=== PATIENT | female | born 1985 | race Caucasian/White ===

== ENCOUNTER 2017-12-19 20:56 | Inpatient (IN) | payer OTHER ==
[~2017-12-19] VITALS: Ht 162.6 cm; Wt 112.5 kg
[~2017-12-19 20:56] MED LIST: ABILIFY5 M1 PO; DEPAKOTE500 M1 PO; EFFEXOR XR75 M1 PO; KLONOPIN1 M1 PO; NEURONTIN300 M1 PO; ZYPREXA10 M1 PO
[2017-12-19 22:03] LABS: ABSOLUTE BASOPHIL COUNT 0 /CUMM (0.0-0.2); ABSOLUTE EOSINOPHIL COUNT 0 /CUMM (0.0-0.7); ABSOLUTE GRANULOCYTE CT 3.6 /CUMM (1.4-6.5); ABSOLUTE LYMPH COUNT 2.1 /CUMM (1.2-3.4); ABSOLUTE MONOCYTE COUNT 0.5 /CUMM (0.10-0.60); BASOPHIL % 0.2 % (0.0-2.0); EOSINOPHIL % 0 % (0-5); GRANULOCYTE % 58.1 % (42.2-75.2); HEMATOCRIT 39.1 % (37-47); MEAN CORPUSCULAR HGB 30.6 PG (27.0-31.0); MEAN CORPUSCULAR HGB CONC 33.5 G/DL (33.0-37.0); MEAN CORPUSCULAR VOLUME 91.4 FL (81.0-99.0); MEAN PLATELET VOLUME 10.9 FL (7.4-10.4); PLATELET COUNT 145 /CUMM (130-400); RBC DISTRIBUTION WIDTH 13.6 % (11.5-14.5); RED BLOOD CELL CT 4.28 /CUMM (4.20-5.40); WHITE BLOOD CELL COUNT 6.2 /CUMM (4.8-10.8)
[2017-12-19] MEDS ORDERED: ALPRAZOLAM1 M2 PO (22:05)
[2017-12-19] MEDS ORDERED: DEPAKOTE500 M1 PO (22:08)
[2017-12-19] MEDS ORDERED: GABAPENTIN400 M2 PO (22:09)
[2017-12-19] MEDS ORDERED: PROPRANOLOL HCL20 M1 PO (22:09)
[2017-12-19] MEDS ORDERED: LATUDA80 M1 PO (22:09)
[2017-12-19] MEDS ORDERED: MIRTAZAPINE15 M2 PO (22:10)
[2017-12-19] MEDS ORDERED: MINIPRESS2 M1 PO (22:10)
--- NOTE | 2017-12-20 00:40 | ED GENERAL ADULT ---
History of Present Illness General Chief Complaint: Psychiatric Related Complaint Stated Complaint: BIBA +SI Source: patient Exam Limitations: no limitations Vital Signs & Intake/Output Vital Signs & Intake/Output Vital Signs Date Time Temp Pulse Resp B/P B/P Pulse O2 O2 Flow FiO2 Mean Ox Delivery Rate 12/20 1601 97.2 67 95/60 12/20 1555 97.2 67 18 95/60 12/20 1409 65 109/73 12/20 1357 97.7 65 19 109/73 98 Room Air 12/20 1031 97 Room Air Room Air 12/20 1031 97.4 83 18 128/81 97 Room Air Room Air 12/20 0818 97.3 56 18 133/74 100 Room Air Room Air 12/20 0615 97.9 56 20 117/22 12/20 0557 Room Air 12/20 0557 97.9 56 20 117/22 98 Room Air 12/20 0144 Room Air 12/20 0143 98.8 64 20 123/72 100 Room Air 12/19 2309 99.3 80 20 127/96 99 Room Air 12/19 2109 98.3 89 20 136/88 99 Room Air Allergies Coded Allergies: No Known Allergies (02/25/16) Reconcile Medications Alprazolam 1 MG TABLET 1 TAB PO TID ANXIETY (Reported) Divalproex Sodium (Depakote) 500 MG TABLET.DR 1 TAB PO QAM MENTAL HEALTH ( Reported) Divalproex Sodium (Depakote) 500 MG TABLET.DR 1,500 MG PO QPM MENTAL HEALTH ( Reported) Gabapentin 400 MG CAPSULE 1 CAP PO TID ANXIETY/MOOD (Reported) Lurasidone HCl (Latuda) 80 MG TABLET 1 TAB PO QPM MENTAL HEALTH (Reported) Mirtazapine 15 MG TABLET 1 TAB PO QPM MENTAL HEALTH (Reported) Prazosin HCl (Minipress) 2 MG CAPSULE 1 CAP PO QPM NIGHTMARES (Reported) Propranolol HCl 20 MG TABLET 1 TAB PO TID ANXIETY (Reported) Venlafaxine HCl (Effexor XR) 75 MG CAP.ER.24H 5 CAP PO DAILY MENTAL HEALTH ( Reported) Triage Note: PT BIBA WITH +SI. EMS REPORTS THAT PT WAS SEEN AND DC'd FROM [facility] ED EARLIER TODAY WITH SAME COMPLAINT. +SI WITH PLAN TO OD ON ASPIRIN, ILLEGAL DRUGS AND/OR ALCOHOL. PT STATES THAT SHE WAS DC'd WITHOUT TX TODAY FROM [facility], BEING TOLD TO "STAY WITH A FRIEND AND TAKE A HOT SHOWER". PT ARRIVES TEARFUL AND AGITATED, WANTING TO KNOW "THAT YOU'RE GOING TO DO SOMETHING FOR ME AND NOT IGNORE ME LIKE [facility]". PT GIVEN REASSURANCE THAT DUE TO HER SUICIDAL STATEMENTS SHE WOULD BE STAYING HERE AND SEEN". Triage Nurses Notes Reviewed? yes Onset: Gradual Duration: day(s): Timing: constant : No Patient currently breastfeeds: No HPI: 32-year-old female with a history of anxiety, depression, and polysubstance abuse presenting with suicidal ideation. Patient reports she has been having suicidal thoughts for the past few days. States that she usually begins to have these thoughts when she stops taking her Xanax, has been off her Xanax for 3 weeks. Is usually supposed to take 1 mg 3 times a day. Also states that she has had multiple life stressors that are worsening her suicidal ideation. Her child's father was recently incarcerated, leaving her as a single parent for the time being, increasing her stress levels. She denies homicidal ideation. States that she has a remote use of cocaine with last use last week. Denies any other drug use or EtOH use. Denies any pain or trauma. Patient was seen and evaluated at [facility] emergency department this morning. States that they discharged her home even though she was still having suicidal ideation. Presents now for psychiatric evaluation of her suicidal ideation. (Ne Maher) Past History Travel History Traveled to [place] past 21 day No Medical History Any Pertinent Medical History? see below for history Neurological: NONE EENT: NONE Cardiovascular: NONE Respiratory: NONE Gastrointestinal: NONE Hepatic: NONE Renal: NONE Musculoskeletal: NONE Psychiatric: anxiety, depression Endocrine: NONE Isolation History: Standard Surgical History Surgical History: non-contributory Psychosocial History What is your primary language Surinamese Tobacco Use: Refused to answer Family History Hx Contributory? No (Ne Maher) Review of Systems Review of Systems Constitutional: Reports: no symptoms. EENTM: Reports: no symptoms. Respiratory: Reports: no symptoms. Cardiovascular: Reports: no symptoms. GI: Reports: no symptoms. Genitourinary: Reports: no symptoms. Musculoskeletal: Reports: no symptoms. Skin: Reports: no symptoms. Neurological/Psychological: Reports: see HPI. Hematologic/Endocrine: Reports: no symptoms. Immunologic/Allergic: Reports: no symptoms. All Other Systems: Reviewed and Negative (Ne Maher) Physical Exam Physical Exam General Appearance: well developed/nourished, no apparent distress, alert, awake Comments: Gen.: Well-nourished, well-developed, no acute distress, tearful and agitated Head: Normocephalic, atraumatic. Eyes: Normal inspection bilaterally Ears: Normal inspection bilaterally Nose: Normal inspection Neck: Normal inspection Lungs: clear to auscultation bilaterally, normnal breath sounds Heart: regular rate and rhythm Abdomen: soft and non-tender Extremities: Normal inspection Neurologic: alert and oriented x3, steady gait Skin: warm and dry Psychiatric: no apparent delusions or hallucinations, behavior appropriate Core Measures ACS in differential dx? No CVA/TIA Diagnosis: No Sepsis Present: No Sepsis Focused Exam Completed? No (Ne Maher) Progress Differential Diagnoses I considered the following diagnoses in my evaluation of the patient: [Suicidal ideation versus intoxication, low concern for trauma] Plan of Care: Orders Procedure Date/time Status Regular Diet 12/20 D Active Regular Diet 12/20 B Complete URINE DRUGS OF ABUSE 12/20 1800 Active Vital Signs 12/20 1618 Active Inpt Psych Teach/Educate 12/20 1618 Active Nutritional Intake, Monitor 12/20 1618 Active Inpt Psych Auricular Acupunctu 12/20 1618 Active Admit to inpatient psych 12/20 1442 Active Patient Data - inpatient psych 12/20 1415 Active Admit to inpatient psych 12/20 1415 Active EKG 12/20 0106 Active Vital Signs 12/20 UNK Complete Nursing Misc 12/20 UNK Active Alternative Nursing Therapy 12/20 UNK Active Activity/Ambulation 12/20 UNK Active Intake & Output 12/199 Complete Continuous Observation Monitor 12/19 2113 Complete URINE DRUGS OF ABUSE 12/19 2113 Complete URINE 12/19 2113 Complete MAGNESIUM 12/19 2113 Complete ETHANOL 12/19 2113 Complete COMPREHENSIVE METABOLIC PANEL 12/19 2113 Complete CBC WITHOUT DIFFERENTIAL 12/19 2113 Complete ED CRISIS PSYCH CONSULT 12/19 2113 Active Current Medications Sig/Viviane Start time Last Medication Dose Stop Time Status Admin Methadone HCl 110 MG DAILY 12/21 09 AC (Dolophine) Venlafaxine HCl 375 MG DAILY 12/21 09 CAN (Effexor Xr) Venlafaxine HCl 300 MG 0800 12/21 0800 AC (Effexor Xr) Gabapentin 900 MG Q8 12/20 2200 AC (Neurontin) Divalproex Sodium 1,750 MG QPM 12/20 2100 AC (Depakote) Mirtazapine 15 MG AT BEDTIME 12/20 2099 CAN (Remeron) Prazosin HCl 2 MG QPM 12/20 2100 AC (Minipress 2 Mg.) Prazosin HCl 2 MG QPM 12/20 2099 CAN (Minipress 2 Mg.) Acetaminophen 650 MG Q4P PRN 12/20 1730 AC (Tylenol) Al Hydroxide/Mg 30 ML Q4-6 PRN PRN 12/20 173 AC Hydroxide (Maalox Plus) Chlorpromazine 100 MG AT BEDTIME NEED.. 12/20 173 AC (Thorazine 100MG) Magnesium Hydroxide 30 ML AT BEDTIME PRN 12/20 1730 AC (Milk Of Magnesia) Benztropine Mesylate 1 MG Q6P PRN 12/20 171 AC (Cogentin) Chlorpromazine 75 MG Q4 HRS NEEDED PRN 12/20 171 AC 12/20 (Thorazine 25MG Tab) 1857 Haloperidol 5 MG Q6P PRN 12/20 171 AC (Haldol) Lorazepam 2 MG Q6P PRN 12/20 171 AC (Ativan) Nicotine 2 MG Q2 HRS NEEDED PRN 12/20 171 AC (Nicotine) Nicotine 21 MG DAILY 12/20 171 AC (Nicoderm) Divalproex Sodium 500 MG QAM 12/20 0900 AC 12/20 (Depakote) 0925 Laboratory Tests 12/19/17 2140: Anion Gap 9, Estimated GFR > 60, BUN/Creatinine Ratio 18.8, Glucose 84, Calcium 9.4, Magnesium 1.9, Total Bilirubin 0.4, AST 39 H, ALT 37, Alkaline Phosphatase 101, Total Protein 7.1, Albumin 4.1, Globulin 3.0, Albumin/Globulin Ratio 1.4, CBC w Diff NO MAN DIFF REQ, RBC 4.28, MCV 91.4, MCH 30.6, MCHC 33.5, RDW 13.6, MPV 10.9 H, Gran % 58.1, Lymphocytes % 33.9, Monocytes % 7.8, Eosinophils % 0, Basophils % 0.2, Absolute Granulocytes 3.6, Absolute Lymphocytes 2.1, Absolute Monocytes 0.5, Absolute Eosinophils 0, Absolute Basophils 0, Serum Alcohol < 10.0 12/19/172138: Urine Opiates Screen 550, Methadone Screen > 735 H, Barbiturate Screen < 60, Ur Phencyclidine Scrn 10.70, Amphetamines Screen < 100, U Benzodiazepines Scrn < 85 , Urine Cocaine Screen > 1000 H, Urine Cannabis Screen < 5.00, Urine Test NEGATIVE Urine positive for methadone and cocaine. Otherwise labs unremarkable. Patient states that she receives 115 mg of methadone daily from [facility] in [place]. I contacted [facility] who stated she has not received her methadone dose from them in 6 days. There was a note in their system that stated she was receiving it at [facility]. Attempted to contact [facility] to inquire about her daily dosing and the last time she received her methadone, but was unable to get through to a provider. Her methadone dose will need to be confirmed in the morning. Patient will be signed out to Dr. Mc with crisis evaluation pending in the morning. Initial ED EKG: none (Ne Maher) Hand-Off Endorsed To: Abiodun Allen DO Endorsed Time: 1313 Pending: consult (Christina KIM,Luther Niño) Departure Departure Disposition: STILL A PATIENT Condition: Stable Clinical Impression Primary Impression: Suicidal ideation Secondary Impressions: Cocaine abuse, Opiate dependence Referrals: Patient Has No Primary Care Dr (PCP/Family) Departure Forms: Customer Survey General Discharge Information (Ne Maher) Departure Comments pt to be signed out to dr. salazar 12/20/17, 7am. PA/ACCOUNT AUDITOR Co-Sign Statement Statement: ED Attending supervision documentation- [] I saw and evaluated the patient. I have also reviewed all the pertinent lab results and diagnostic results. I agree with the findings and the plan of care as documented in the PA's/ACCOUNT AUDITOR's documentation. [x] I have reviewed the ED Record and agree with the PA's/ACCOUNT AUDITOR's documentation. [] Additions or exceptions (if any) to the PAs/ACCOUNT AUDITOR's note and plan are summarized below: [] (Jesusita KIM,Song Garcia) Departure Comments The patient was admitted to Inpatient Psychiatry. (Abiodun Allen DO) Critical Care Note Critical Care Note Critical Care Time: non-applicable (Vannesa AJ,Ne)
--- NOTE | 2017-12-20 11:01 | ED PSYCH CRISIS CONSULTATION ---
Crisis Consult Basic Assessment Date of Consult: 12/20/17 Responsible Person/Accompanied By: self Insurance Authorization: Insurance #1: Insurance name: JUAREZ LEON Phone number: Policy number: [id number] Group number: Authorization number: ED Provider: Patient's ED Provider: Ne Maher Primary Care Physician: Patient's PCP: Patient Has No Primary Care Dr PCP's Phone Number: Current Psychiatrist: Melba JOLLEY Chief Complaint: Psychiatric Related Complaint Patient's Quote: "I need my medication" Present Illness: Pt is a 32 year old female presenting to the ED with +SI. Pt reported to triage that she was seen by [facility] yesterday for SI and was discharged. Today patient states she is suicidal. She has a vague plan "maybe" overdosing on Aspirin or ETOH but states to from ETOH poisioning would take too long. Pt reports last suicide attempt was 1.5 months ago when she was going to run around a corner and jump off a bridge but her son's father stopped her. Pt is not able to articulate any neurovegetive symptoms and changes the subject when asked directly about her symptoms. She reports she is prescribed Methadone, Effexor, Xanax, Depakote, Latuda, Propanolol, Topomax, Remeron, and Prosozin. She reports she is prescribed her psychiatric medications from Melba Gould @ the [facility]. Pt reports she has been in treatment at the [facility] for over a year. She states she previously completed their IOP but has since relapsed. Pt relapsed ~3-4 weeks ago on cocaine when she started hanging out with her son's father again. Of note, son is 7 and lives with pt's sister who is the child's legal guardian. She states her last use was $40 worth of cocaine on Saturday however her UDS is positive for Cocaine and Methadone. Pt adamantly denies cocaine use and demanding a repeat drug screen. Pt reports she is on Methadone 115 mg from [place]. Dose verified by ED staff overnight, stating she was last dosed 115mg before her inpatient hospitalization at [place], which was this week. Patient had multiple IP psych hospitalization over the last few years including: [facility] (11/2016) [facility] (11/2016), [facility] (12/2015), [facility], and [facility]. Pt initially stated that her last IP at [facility] was over a year ago. When confronted about this statement stating that crisis knew she was IP this week at [facility], pt confirms admission. Pt states she was not being treated fairly at [place] and that to take her off her effexor. Pt states she signed a 3 day paper even though she was still suicidal because she was upset with the doctor about medication changes. Pt states when the tech was taking her BP she asked if she could rescind the 3 day. Pt reports she was discharged anyway. Pt reports since she was still feeling suicidal, she went to [facility], seen and discharged. Crisis obtained discharge paperwork from most recent discharge from [place]. It was documented that "upon arrival to the floor, her outpatient medications were resumed: depakote for mood stabilization, latude for mood adjunct treatment , gabapentin as a mood adjuct and for off label treatment of anxiety, effexor for depression and anxiety, remeron for sleep and prazosin for PTSD related nightmares. Various recommendations were made including the plan that her regimen should be minimized and several agents should be tapered/discontinued. She was resistant to this with the exception of discontinuing her remeron. She persistently demanded that she be given xanax, identifying this would be the only therapeutic intervention to resolve her anxiety and depression. When the team reviewed their concerns about this and explained that the use of xanax was not indicated, she filed a three day paper and requested to be discharged. Given her resistance to all recommendations made by the treatment team, it was felt that she had attained the maximal benefit of hospitalization. While she was felt to be a chronic risk of self harm given her pesistant substance abuse and personality traits, she was no longer felt to be imminently at risk of harm to self or others. When efforts were made then to develop a discharge plan, she threatened suicide. However, she displayed no objective evidence of worsening depression [she was out in the community, interacting with peers appropriately, making future oriented statements and was eating all three meals]. Upon exiting the hospital, she remarkered that she would be seeking care elsewhere to follow up with someone who will actually give me my xanax Crisis spoke to [facility] [phone]. They confirmed that the patient is in active treatment at the [facility]. She sees a therapist, Memo and ALEJANDRO Gould. Her next appointments are 12/23/17 and 12/25/17 respectively. Crisis consulted with Dr. Helen Garcia, practice professional psychiatrist. The initial plan was to discharge the pt as she has her after care appointments in place from her discharge from [facility] and [facility]'s discharge summary indicates she had recieved maximum benefit from that hospitalization. When crisis informed the patient that she would be discharged to follow up with [facility], pt loudly exclaimed, But Im suicidal Im going to tell my mom that no hospital is helping me so she knows who to blame when Im . Crisis allowed the patient some time to deescalate. Sitters noted that pt seemed to be falling asleep while standing up and needed to redirect her to sit on her bed several times. Crisis spoke to patients mother, Ana Maria Morales, . Mother reports she is concerned about her daughter stated that she cant survive on her own out there. Mom states the patient is homeless, despite the pt stating she was staying in her sons fathers apartment ([place]). Mom states she thinks if the pt is released from the hospital, she is a danger to herself or will be a victim. Mom states that the patient could get attacked by a perpetrator. Mom states living with her is not an option as her landlord will not allow it and the pt has been aggressive towards her in the past. Of note, per public records, pt is currently on probation and is expected to finish her probation in February 2018. Pt has been arrested 9 times since 2008. Charges include: Breach of Peace, Possession of Narcotics, resisting arrest, larceny, assault, criminal tresspassing, and failure to appear. She has violated probation on 2 occassions. Pt's title officer is Kevin Franklin ). Voicemail left, no return call at this time. Crisis consulted again with Dr. Garcia. We have decided to admit the patient to [facility]. This will likely be a short inpatient stay so that the patient can return to her outpatient treatment providers and restart IOP. Crisis explained to the patient that we will admit her and that she will have her Methadone tapered 5 mg per day per [facility] protocol for treating patients with Methadone when they have a positive UDS in the ED. Pt is upset about this and is adamant that her urine should not have cocaine in it. Patient ultimately signed in voluntarily as she states she needs to be hospitalized. Patient's Address: [address] [place] [address] Other Phone Number: Who Do You Live With? Patient/Self Family/Informants Interviewed: Spoke with [facility] [phone] to confirm the patients appointments- which are 12/23 (therapist) and 12/25 ([facility]). Spoke with [facility]. Pt was hospitalized - this week. They faxed over discharge summray., Left message with mother, Ana Maria Morales [phone] Allergies - Coded Allergies: No Known Allergies (02/25/16) Current Medications - Scheduled Medications Alprazolam 1 MG TABLET 1 TAB PO TID ANXIETY (Reported) Entered as Reported by Марина Barrow on 12/19/172204 Divalproex Sodium (Depakote) 500 MG TABLET. 1 TAB PO QAM MENTAL HEALTH ( Reported) Entered as Reported by Tyler Luther on 02/25/16 111 Divalproex Sodium (Depakote) 500 MG TABLET. 1,500 MG PO QPM MENTAL HEALTH ( Reported) Entered as Reported by Марина Barrow on 12/19/172207 Gabapentin 400 MG CAPSULE 1 CAP PO TID ANXIETY/MOOD (Reported) Entered as Reported by Марина Barrow on 12/19/172208 Lurasidone HCl (Latuda) 80 MG TABLET 1 TAB PO QPM MENTAL HEALTH (Reported) Entered as Reported by Марина Barrow on 12/19/172208 Mirtazapine 15 MG TABLET 1 TAB PO QPM MENTAL HEALTH (Reported) Entered as Reported by Марина Barrow on 12/19/172209 Prazosin HCl (Minipress) 2 MG CAPSULE 1 CAP PO QPM NIGHTMARES (Reported) Entered as Reported by Марина Barrow on 12/19/172209 Propranolol HCl 20 MG TABLET 1 TAB PO TID ANXIETY (Reported) Entered as Reported by Марина Barorw on 12/19/172208 Venlafaxine HCl (Effexor XR) 75 MG CAP.ER.24H 5 CAP PO DAILY MENTAL HEALTH ( Reported) Entered as Reported by Tyler Luther on 02/25/16 1117 Laboratory Results: Laboratory Tests 12/19/172139: Anion Gap 9, Estimated GFR > 60, BUN/Creatinine Ratio 18.8, Glucose 84, Calcium 9.4, Magnesium 1.9, Total Bilirubin 0.4, AST 39 H, ALT 37, Alkaline Phosphatase 101, Total Protein 7.1, Albumin 4.1, Globulin 3.0, Albumin/Globulin Ratio 1.4, CBC w Diff NO MAN DIFF REQ, RBC 4.28, MCV 91.4, MCH 30.6, MCHC 33.5, RDW 13.6, MPV 10.9 H, Gran % 58.1, Lymphocytes % 33.9, Monocytes % 7.8, Eosinophils % 0, Basophils % 0.2, Absolute Granulocytes 3.6, Absolute Lymphocytes 2.1, Absolute Monocytes 0.5, Absolute Eosinophils 0, Absolute Basophils 0, Serum Alcohol < 10.0 12/19/172138: Urine Opiates Screen 550, Methadone Screen > 735 H, Barbiturate Screen < 60, Ur Phencyclidine Scrn 10.70, Amphetamines Screen < 100, U Benzodiazepines Scrn < 85 , Urine Cocaine Screen > 1000 H, Urine Cannabis Screen < 5.00, Urine Test NEGATIVE Past History Past Medical History Neurological: NONE EENT: NONE Cardiovascular: NONE Respiratory: NONE Gastrointestinal: NONE Hepatic: NONE Renal: NONE Musculoskeletal: NONE Psychiatric: anxiety, depression, substance abuse Endocrine: NONE Past Surgical History Surgical History: non-contributory Psychosocial History Strengths/Capabilities: Pt is service connected to [facility] Physical Limitations (Interventions): none obeserved Psychiatric Treatment History Psych Treatment Psychiatric Treatment Yes Inpatient Treatment Yes Outpatient Treatment Yes Location of Treatment Most recent IP- Bpt: this week, other IP (6), OP: [facility] Reason for Treatment SI, bipolar d/o, polysubstance use Dates of Treatment see above Response to Treatment poor Diagnosis by History: Bipolar Disorder Opiate Use Disorder Stimulant Use Disorder, Cocaine Type REYNALDO Substance Use/Abuse History Drug Use/Abuse 1 Substances Used/Abused Yes Substance Used/Abused Cocaine First Use unk Last Used pt reports 12/15; however pt is + for cocaine on 12/20 How much used/taken $40 worth How often intermittantly For how long 3-4 weeks Route of use smoke Drug Use/Abuse 2 Substances Used/Abused Yes Substance Used/Abused Benzodiazepines First Use Xanax 03/2017, prior to that Klonopin for almost 2 years Last Used 3 weeks ago How much used/taken pt states 1mg TID How often daily For how long since 03/2017 Route of use oral Drug Use/Abuse 3 Substances Used/Abused Yes Substance Used/Abused Non-Prescribed Opiates First Use 2005 Last Used pt reports no recent use, UDS from Bpt + opiates 12/16/17 Drug Use/Abuse 4 Substances Used/Abused Yes Substance Used/Abused Other (list in comments) (Methadone) Last Used today in ED How much used/taken 115 mg How often daily For how long unk Route of use oral Substance Abuse Treatment Substance Abuse Treatment Past Substance Abuse TX Yes Inpatient Treatment Yes Outpatient Treatment Yes Location of Treatment IP: [facility], OP: [facility] Reason for Treatment Opiate use Cocaine use [facility]ates of [facility] Response to Treatment poor Current Mental Status Mental Status Orientation: Person, Place, Situation Affect: Variable Speech: Loud Neuro-vegetative: difficult to assess, pt avoided questions Appearance Appearance- Dress/Hygiene: Pt presents in hospital attire. She has long hair that the bottom half has been previously dyed green/blue and is fading. She has piecings above her lip and on her lip. Behaviors Thought Process: WNL Thought Content: WNL Memory: WNL Insight: Poor SI/HI Risk Assessment Past Suicidal Ideation/Attempts Yes Current Suicidal Ideation/Att Yes Past Homicidal Ideation/Att: No Current Homicidal Ideation/Attempts No Degree of Intent: States Intent Danger To: Self Gravely Disabled: Lack of Insight, Poor Impulse Control, Poor Judgment Risk Factors: high anxiety/distress, SA/MH hospitalized, substance abuse, poor impulse control, lives alone, limited support Lethality Ratin PTSD Checklist PTSD Done? patient declined ED Management Sitter: Yes Restraints: No DSM5/PS Stressors/Medical Prob Diagnosis' (DSM 5, Stressors, Medical): F31.4 Bipolar Disorder, MRE depressed, severe, w/o psychotic features (Per [facility] Discharge Summary) F11.20 Opiate Use Disorder F14.20 Stimulant Use Disorder Stressors: legal involvement- on probation, pending court date 12/25/17 Current GAF: 30 Departure Disposition Psych Medical Clearance Date: 12/20/17 Medically Cleared at: 0830 Time Started: 0830 Time Ended: 0900 Psychiatrist Consulted: Dr. Helen Deleon Date Disposition Established: 12/20/17 Time Disposition Established: 1329 Plan for Disposition - Modality: Inpatient Psychiatry Facility: [facility] Rationale for Disposition: Pt has a long history of inpatient psychiatric admissions with the most recent discharge being yesterday, 12/19 from [facility]. Pt reports she was still suicidal but had signed a 3 day paper because her doctor wasn't listening to her. Pt remains suicidal with plan to overdose on aspirin. Pt has had two suicide attempts in the past- Heroin OD in 09/2016 and 1.5 months ago she reports she tried to run and jump off a bridge but her son's father stopped her. Type of IP Admission: Voluntary Referrals Patient Has No Primary Care Dr (PCP/Family)
--- NOTE | 2017-12-20 15:40 | IP CRISIS DIAG ASSESS PSYCH ---
Diagnostic Assessment Basic Assessment Insurance Authorization: Insurance #1: Insurance name: [employer] Phone number: Policy number: [id number] Group number: Authorization number: APPROVED 3 UNITS FROM 12/20/17- [id number] Primary Care Physician: Patient's PCP: Patient Has No Primary Care Dr PCP's Phone Number: Patient's Quote: "I need my medication" Present Illness: Pt is a 32 year old female presenting to the ED with +SI. Pt reported to triage that she was seen by [facility] yesterday for SI and was discharged. Today patient states she is suicidal. She has a vague plan "maybe" overdosing on Aspirin or ETOH but states to from ETOH poisioning would take too long. Pt reports last suicide attempt was 1.5 months ago when she was going to run around a corner and jump off a bridge but her son's father stopped her. Pt is not able to articulate any neurovegetive symptoms and changes the subject when asked directly about her symptoms. She reports she is prescribed Methadone, Effexor, Xanax, Depakote, Latuda, Propanolol, Topomax, Remeron, and Prosozin. She reports she is prescribed her psychiatric medications from Melba Gould @ the [facility]. Pt reports she has been in treatment at the [facility] for over a year. She states she previously completed their IOP but has since relapsed. Pt relapsed ~3-4 weeks ago on cocaine when she started hanging out with her son's father again. Of note, son is 7 and lives with pt's sister who is the child's legal guardian. She states her last use was $40 worth of cocaine on Saturday however her UDS is positive for Cocaine and Methadone. Pt adamantly denies cocaine use and demanding a repeat drug screen. Pt reports she is on Methadone 115 mg from [place]. Dose verified by ED staff overnight, stating she was last dosed 115mg before her inpatient hospitalization at [place], which was this week. Patient had multiple IP psych hospitalization over the last few years including: [facility] (11/2016) [facility] (11/2016), [place] (12/2015), [facility], and [facility]. Pt initially stated that her last IP at [facility] was over a year ago. When confronted about this statement stating that crisis knew she was IP this week at [facility], pt confirms admission. Pt states she was not being treated fairly at [place] and that to take her off her effexor. Pt states she signed a 3 day paper even though she was still suicidal because she was upset with the doctor about medication changes. Pt states when the tech was taking her BP she asked if she could rescind the 3 day. Pt reports she was discharged anyway. Pt reports since she was still feeling suicidal, she went to [facility], seen and discharged. Crisis obtained discharge paperwork from most recent discharge from [place]. It was documented that "upon arrival to the floor, her outpatient medications were resumed: depakote for mood stabilization, latude for mood adjunct treatment , gabapentin as a mood adjuct and for off label treatment of anxiety, effexor for depression and anxiety, remeron for sleep and prazosin for PTSD related nightmares. Various recommendations were made including the plan that her regimen should be minimized and several agents should be tapered/discontinued. She was resistant to this with the exception of discontinuing her remeron. She persistently demanded that she be given xanax, identifying this would be the only therapeutic intervention to resolve her anxiety and depression. When the team reviewed their concerns about this and explained that the use of xanax was not indicated, she filed a three day paper and requested to be discharged. Given her resistance to all recommendations made by the treatment team, it was felt that she had attained the maximal benefit of hospitalization. While she was felt to be a chronic risk of self harm given her pesistant substance abuse and personality traits, she was no longer felt to be imminently at risk of harm to self or others. When efforts were made then to develop a discharge plan, she threatened suicide. However, she displayed no objective evidence of worsening depression [she was out in the community, interacting with peers appropriately, making future oriented statements and was eating all three meals]. Upon exiting the hospital, she remarkered that she would be seeking care elsewhere to follow up with someone who will actually give me my xanax Crisis spoke to [facility] [phone]. They confirmed that the patient is in active treatment at the [facility]. She sees a therapist, Memo and ALEJANDRO Gould. Her next appointments are 12/23/17 and 12/25/17 respectively. Crisis consulted with Dr. Helen Garcia, instructional support technician psychiatrist. The initial plan was to discharge the pt as she has her after care appointments in place from her discharge from [facility]'s discharge summary indicates she had recieved maximum benefit from that hospitalization. When crisis informed the patient that she would be discharged to follow up with [facility], pt loudly exclaimed, But Im suicidal Im going to tell my mom that no hospital is helping me so she knows who to blame when Im . Saul allowed the patient some time to deescalate. Sitters noted that pt seemed to be falling asleep while standing up and needed to redirect her to sit on her bed several times. Saul spoke to patients mother, Ana Maria Morales, . Mother reports she is concerned about her daughter stated that she cant survive on her own out there. Mom states the patient is homeless, despite the pt stating she was staying in her sons fathers apartment ([place]). Mom states she thinks if the pt is released from the hospital, she is a danger to herself or will be a victim. Mom states that the patient could get attacked by a perpetrator. Mom states living with her is not an option as her landlord will not allow it and the pt has been aggressive towards her in the past. Of note, per public records, pt is currently on probation and is expected to finish her probation in February 2018. Pt has been arrested 9 times since 2008. Charges include: Breach of Peace, Possession of Narcotics, resisting arrest, larceny, assault, criminal tresspassing, and failure to appear. She has violated probation on 2 occassions. Pt's first officer and flight instructor is Kevin Plunkett ([phone]). Voicemail left, no return call at this time. Saul consulted again with Dr. Garcia. We have decided to admit the patient to [facility]. This will likely be a short inpatient stay so that the patient can return to her outpatient treatment providers and restart IOP. Crisis explained to the patient that we will admit her and that she will have her Methadone tapered 5 mg per day per [facility] protocol for treating patients with Methadone when they have a positive UDS in the ED. Pt is upset about this and is adamant that her urine should not have cocaine in it. Patient ultimately signed in voluntarily as she states she needs to be hospitalized. Patient's Address: [address] [place] [id number] Other Phone Number: Who Do You Live With? Patient/Self If No, Please Elaborate: Pt reports she was staying with her son's father for the last 3-4 weeks in [place]. She states he was arrested Saturday and was incarcerated. She is unsure if she can return there as she is unsure how long the place is paid for. Marital Status: single Do You Have Children? Yes Ages? 7 Primary Language? Macedonian Language(s) Spoken At Home: Macedonian Family/Informants Interviewed: Spoke with [facility] [phone] to confirm the patients appointments- which are 12/23 (therapist) and 12/25 (SUPERVISOR PAYROLL). Spoke with [facility]. Pt was hospitalized [facility] this week. They faxed over discharge summray. Left message with mother, Ana Maria Morales [phone] Allergies - Coded Allergies: No Known Allergies (02/25/16) Current Medications - Scheduled Medications Alprazolam 1 MG TABLET 1 TAB PO TID ANXIETY (Reported) Entered as Reported by Марина Barrow on 12/19/172204 Divalproex Sodium (Depakote) 500 MG TABLET. 1 TAB PO QAM MENTAL HEALTH ( Reported) Entered as Reported by Tyler Luther on 02/25/16 1117 Divalproex Sodium (Depakote) 500 MG TABLET. 1,500 MG PO QPM MENTAL HEALTH ( Reported) Entered as Reported by Марина Barrow on 12/19/172207 Gabapentin 400 MG CAPSULE 1 CAP PO TID ANXIETY/MOOD (Reported) Entered as Reported by Марина Barrow on 12/19/172208 Lurasidone HCl (Latuda) 80 MG TABLET 1 TAB PO QPM MENTAL HEALTH (Reported) Entered as Reported by Марина Barrow on 12/19/172208 Mirtazapine 15 MG TABLET 1 TAB PO QPM MENTAL HEALTH (Reported) Entered as Reported by Марина Barrow on 12/19/172209 Prazosin HCl (Minipress) 2 MG CAPSULE 1 CAP PO QPM NIGHTMARES (Reported) Entered as Reported by Марина Barrow on 12/19/172209 Propranolol HCl 20 MG TABLET 1 TAB PO TID ANXIETY (Reported) Entered as Reported by Марина Barrow on 12/19/172208 Venlafaxine HCl (Effexor XR) 75 MG CAP.ER.24H 5 CAP PO DAILY MENTAL HEALTH ( Reported) Entered as Reported by Tyler Luther on 02/25/16 111 Consequences of Psych Med Use: Pt sees SUPER[facility]OR [facility]. Pt states she is prescribed Methadone, Effexor, Xanax, Depakote, Latuda, Propanolol, Topomax, Remeron, and Prozosin. Pt's discharge Lab Results: Laboratory Tests 12/19/172139: Anion Gap 9, Estimated GFR > 60, BUN/Creatinine Ratio 18.8, Glucose 84, Calcium 9.4, Magnesium 1.9, Total Bilirubin 0.4, AST 39 H, ALT 37, Alkaline Phosphatase 101, Total Protein 7.1, Albumin 4.1, Globulin 3.0, Albumin/Globulin Ratio 1.4, CBC w Diff NO MAN DIFF REQ, RBC 4.28, MCV 91.4, MCH 30.6, MCHC 33.5, RDW 13.6, MPV 10.9 H, Gran % 58.1, Lymphocytes % 33.9, Monocytes % 7.8, Eosinophils % 0, Basophils % 0.2, Absolute Granulocytes 3.6, Absolute Lymphocytes 2.1, Absolute Monocytes 0.5, Absolute Eosinophils 0, Absolute Basophils 0, Serum Alcohol < 10.0 12/19/172138: Urine Opiates Screen 550, Methadone Screen > 735 H, Barbiturate Screen < 60, Ur Phencyclidine Scrn 10.70, Amphetamines Screen < 100, U Benzodiazepines Scrn < 85 , Urine Cocaine Screen > 1000 H, Urine Cannabis Screen < 5.00, Urine Test NEGATIVE Toxicology Screen Completed? Yes Results: positive Symptoms of Use: Pt adamantly denies recently cocaine use despite testing positive for cocaine in the ED. She reports last use was 12/15. Pt had opiates in her UDS on 12/15 while at [facility]. She is on Methadone 115 mg from [place]. Past History Past Medical History Medical History: Bipolar disorder, Depression, Psychiatric history Abuse/Trauma History Trauma History/Current Trauma: Denies, physical Victim or Perpretator? perpretator History of Trauma/Abuse Treatment? No Legal History Current Legal Status: on probation Have you ever been arrested? Yes Number of Arrests: [address] Dates: 12/25/17 Trauma Counsellor kevin plunkett Psychosocial History Strengths/Capabilities: Pt is service connected to [facility] Physical Limitations (Interventions): none obeserved Psychiatric Treatment History Psych Treatment Psychiatric Treatment Yes Inpatient Treatment Yes Outpatient Treatment Yes Location of Treatment Most recent IP- Bpt: this week, other IP (6), OP: [facility] Reason for Treatment SI, bipolar d/o, polysubstance use Dates of Treatment see above Response to Treatment poor Diagnosis by History: Bipolar Disorder Opiate Use Disorder Stimulant Use Disorder, Cocaine Type REYNALDO Risk Factors: high anxiety/distress, SA/MH hospitalized, substance abuse, poor impulse control, lives alone, limited support Substance Use/Abuse History Drug Use/Abuse minimum 12mo Hx Substances Used/Abused Yes Substance Used/Abused Other (list in comments) (Methadone) First Use 2005 Last Used today in ED How much used/taken 115 mg How often daily For how long unk Route of use oral Substance Abuse Treatment Substance Abuse Treatment Past Substance Abuse TX Yes Inpatient Treatment Yes Outpatient Treatment Yes Location of Treatment IP: [facility], OP: [facility] Reason for Treatment Opiate use Cocaine use [facility]ates of [facility] Response to Treatment poor Education History Highest Level of Education: not sure Current Mental Status Mental Status Orientation: Person, Place, Situation Affect: Variable Speech: Loud Neuro-vegetative: difficult to assess, pt avoided questions Appearance Appearance- Dress/Hygiene: Pt presents in hospital attire. She has long hair that the bottom half has been previously dyed green/blue and is fading. She has piecings above her lip and on her lip. Behaviors Thought Process: WNL Thought Content: WNL Memory: WNL Insight: Poor SI/HI Risk Assessment - Minimum 6mo History- Past Suicidal Ideation/Attempts Yes Current Suicidal Ideation/Att Yes Past Homicidal Ideation/Att: No Current Homicidal Ideation/Attempts No Degree of Intent: States Intent Danger To: Self Gravely Disabled: Lack of Insight, Poor Impulse Control, Poor Judgment Risk Factors: high anxiety/distress, SA/MH hospitalized, substance abuse, poor impulse control, lives alone, limited support Lethality Ratin Needs/Init TX Plan/Goals: Psychiatric Evaluation Medication Evaluation Comphrensive Psychosocial Individual Therapy Group Therapy Family Meeting AUDIT-C Questionnaire: AUDIT-C Questionnaire: Response Value ETOH use in the past year Never 0 # drinks typical/day Doesn't Drink 0 6 or > drinks per occasion Never 0 Total 0 DSM5/PS Stressors/Medical Prob Diagnosis' (DSM 5, Stressors, Medical): F31.4 Bipolar Disorder, MRE depressed, severe, w/o psychotic features (Per [facility] Discharge Summary) F11.20 Opiate Use Disorder F14.20 Stimulant Use Disorder Stressors: legal involvement- on probation, pending court date 12/25/17 Current GAF: 30
[2017-12-20 15:55] VITALS: BP 95/60
[2017-12-20 16:01] VITALS: BP 95/60
[2017-12-20 20:03] VITALS: BP 104/57
--- NOTE | 2017-12-20 21:39 | History & Physical ---
General Information and HPI MD Statement: I have seen and personally examined RAFFY FREEMAN and documented this H&P. The patient is a 32 year old F who presented with a patient stated chief complaint of vague suicidal ideation. Source of Information: patient Exam Limitations: no limitations History of Present Illness: 32 year-old admitted for suicidal ideation. Seen at [facility] day prior to admission, and discharged. Now with vague plans of overdosing. On methadone maintenance with a UDS that is also positive for cocaine. Patient was calm and cooperative during interview, most concerned about her UDS which she says "can't possibly be positive for cocaine; I haven't used that since Saturday". The initial UDS was positive for cocaine. We are repeating it per her request. Also requesting Xanax at this time. She was recently evaluated at [facility] for similar complaints, but wasn't admitted; feels like with this degree of destabilization that she should be hospitalized. Allergies/Medications Allergies: Coded Allergies: No Known Allergies (02/25/16) Home Med list Alprazolam 1 MG TABLET 1 TAB PO TID ANXIETY (Reported) Divalproex Sodium (Depakote) 500 MG TABLET.DR 1 TAB PO QAM MENTAL HEALTH ( Reported) Divalproex Sodium (Depakote) 500 MG TABLET.DR 1,500 MG PO QPM MENTAL HEALTH ( Reported) Gabapentin 400 MG CAPSULE 1 CAP PO TID ANXIETY/MOOD (Reported) Lurasidone HCl (Latuda) 80 MG TABLET 1 TAB PO QPM MENTAL HEALTH (Reported) Mirtazapine 15 MG TABLET 1 TAB PO QPM MENTAL HEALTH (Reported) Prazosin HCl (Minipress) 2 MG CAPSULE 1 CAP PO QPM NIGHTMARES (Reported) Propranolol HCl 20 MG TABLET 1 TAB PO TID ANXIETY (Reported) Venlafaxine HCl (Effexor XR) 75 MG CAP.ER.24H 5 CAP PO DAILY MENTAL HEALTH ( Reported) Compliance With Home Meds: GOOD Past History Travel History Traveled to [place] past 21 day No Medical History Neurological: seizure, 3 YRS AGO EENT: NONE Cardiovascular: NONE Respiratory: asthma Gastrointestinal: NONE Hepatic: NONE Renal: NONE Musculoskeletal: NONE Psychiatric: anxiety, depression, substance abuse Endocrine: NONE Blood Disorders: NONE Cancer(s): NONE STENCIL PRINTER/Reproductive: YEAST POSSIBLY History of MRSA: No History of VRE: No History of CDIFF: No Isolation History: Standard Surgical History Surgical History: non-contributory Past Family/Social History Psychosocial History Where do you live? Other Who Do You Live With? self Services at Home: Home Health Aide (none) Primary Language: Greek Smoking Status: Current Everyday Smoker ETOH Use: occasional use Illicit Drug Use: cocaine Living Will? unknown Power of Assembler Crimper/HCP? unknown Review of Systems Review of Systems Constitutional: Reports: no symptoms. EENTM: Reports: see HPI. Denies: no symptoms. Cardiovascular: Reports: no symptoms. Respiratory: Reports: no symptoms. GI: Reports: no symptoms. Genitourinary: Reports: no symptoms. Musculoskeletal: Reports: no symptoms. Skin: Reports: no symptoms. Neurological/Psychological: Reports: no symptoms. Hematologic/Endocrine: Reports: no symptoms. Immunologic/Allergic: Reports: no symptoms. Post Menopausal: No Exam & Diagnostic Data Last 24 Hrs of Vital Signs/I&O Vital Signs Date Time Temp Pulse Resp B/P B/P Pulse O2 O2 Flow FiO2 Mean Ox Delivery Rate 12/20 2122 96.9 57 18 104/57 12/20 2003 96.9 57 104/57 12/20 1601 97.2 67 95/60 12/20 1555 97.2 67 18 95/60 12/20 1409 65 109/73 12/20 1357 97.7 65 19 109/73 98 Room Air 12/20 1031 97 Room Air Room Air 12/20 1031 97.4 83 18 128/81 97 Room Air Room Air 12/20 0818 97.3 56 18 133/74 100 Room Air Room Air 12/20 0615 97.9 56 20 117/22 12/20 0557 Room Air 12/20 0557 97.9 56 20 117/22 98 Room Air 12/20 0144 Room Air 12/20 0143 98.8 64 20 123/72 100 Room Air 12/19 2309 99.3 80 20 127/96 99 Room Air Physical Exam General Appearance Alert, Oriented X3, Cooperative (poor eye contact) Skin No Rashes, No Breakdown, No Significant Lesion Skin Temp/Moisture Exam: Cool/Dry Sepsis Skin Exam (color): Normal for Ethnicity HEENT Atraumatic, PERRLA, EOMI Neck Supple, No JVD, No thryomegaly Lymphatic Axillary nl, Cervical nl Cardiovascular Regular Rate, Normal S1, Normal S2, No Murmurs, Gallops, Rubs Lungs Clear to Auscultation, Normal Air Movement Abdomen Normal Bowel Sounds Neurological Normal Gait, Normal Speech Assessment/Plan Assessment: 32 year-old admitted for suicidal ideation. Seen at [facility] day prior to admission, and discharged. Now with vague plans of overdosing. On methadone maintenance with a UDS that is also positive for cocaine. Patient was calm and cooperative during interview, most concerned about her UDS which she says "can't possibly be positive for cocaine; I haven't used that since Saturday". The initial UDS was positive for cocaine. We are repeating it per her request. Also requesting Xanax but I don't believe that is desired by psychiatry- she is getting thorazine instead. No new medications ordered for her at this time. As Ranked By This Provider Problem List: 1. Opiate dependence Core Measures/Misc (01/13) Acute Coronary Syndrome ACS Diagnosis: No Congestive Heart Failure Congestive Heart Failure Diagnosis No Cerebrovascular Accident CVA/TIA Diagnosis: No VTE (View Protocol) VTE Risk Factors No risk factors No Mechanical VTE Prophylaxis d/t LowRisk-No Interven Req'd No VTE Pharm Prophylaxis d/t LowRisk-No Interven Req'd Sepsis (View protocol) Sepsis Present: No If YES complete Sepsis Event Note If YES complete Sepsis Event Note
[2017-12-21 07:54] VITALS: BP 94/57
--- NOTE | 2017-12-21 09:06 | CPS PROVIDER INIT ASMT PSYCH ---
Psychiatric Admission Destination Coordinator's Note Reviewed: Yes Patient Seen and Examined: Yes Identifying Information: Pt is a 32 year old female presenting to the ED with +SI. Chief Complaint: "I need my medication" Reaction to Hospitalization: Patient was admitted voluntarily History of Present Illness Onset of Illness: At least since September 2016 Circumstances Leading to Admission: As per Toshia Daniel LCSW's note: "Pt is a 32 year old female presenting to the ED with +SI. Pt reported to triage that she was seen by [facility] yesterday for SI and was discharged. Today patient states she is suicidal. She has a vague plan "maybe" overdosing on Aspirin or ETOH but states to from ETOH poisioning would take too long. Pt reports last suicide attempt was 1.5 months ago when she was going to run around a corner and jump off a bridge but her son's father stopped her. Pt is not able to articulate any neurovegetive symptoms and changes the subject when asked directly about her symptoms. She reports she is prescribed Methadone, Effexor, Xanax, Depakote, Latuda, Propanolol, Topomax, Remeron, and Prosozin. She reports she is prescribed her psychiatric medications from Melba Gould @ the [facility]. Pt reports she has been in treatment at the [facility] for over a year. She states she previously completed their IOP but has since relapsed. Pt relapsed ~3-4 weeks ago on cocaine when she started hanging out with her son's father again. Of note, son is 7 and lives with pt's sister who is the child's legal guardian. She states her last use was $40 worth of cocaine on Saturday however her UDS is positive for Cocaine and Methadone. Pt adamantly denies cocaine use and demanding a repeat drug screen. Pt reports she is on Methadone 115 mg from [facility]. Dose verified by ED staff overnight, stating she was last dosed 115mg before her inpatient hospitalization at [facility], which was this week. Patient had multiple IP psych hospitalization over the last few years including: [facility] (11/2016) [facility] (11/2016), [facility] (12/2015), [facility], and [facility]. Pt initially stated that her last IP at [facility] was over a year ago. When confronted about this statement stating that crisis knew she was IP this week at [facility], pt confirms admission. Pt states she was not being treated fairly at [facility] and that to take her off her effexor. Pt states she signed a 3 day paper even though she was still suicidal because she was upset with the doctor about medication changes. Pt states when the tech was taking her BP she asked if she could rescind the 3 day. Pt reports she was discharged anyway. Pt reports since she was still feeling suicidal, she went to [facility], seen and discharged. " Problem(s) Justifying Need for Admission: See above Other HPI: See above Past Psychiatric History Past Diagnosis(es)- if any: F31.4 Bipolar Disorder, MRE depressed, severe, w/o psychotic features (Per [facility] Discharge Summary) F11.20 Opiate Use Disorder F14.20 Stimulant Use Disorder Past Precipitating Factors- if any: Substance use ( opiates and stimulants) - Include inpatient and outpatient treatment Treatment History: Patient had multiple IP psych hospitalization over the last few years including: [facility] (11/2016) [facility] (11/2016), [facility] (12/2015), [facility], and [facility]. History of Suicide Attempts or Gestures 1 suicide attempt in September 2016 by overdose. Although she mentioned the second attempt by attempting to jump off a bridge that actually did not happen because "her son's father stopped her" Substance Abuse History: Extensive substance abuse history opiates and cocaine Allergies: Coded Allergies: No Known Allergies (02/25/16) Home Med List: Alprazolam 1 MG TABLET 1 TAB PO TID ANXIETY (Reported) Entered as Reported by Марина Barrow on 12/19/17 2205 Divalproex Sodium (Depakote) 500 MG TABLET. 1 TAB PO QAM MENTAL HEALTH ( Reported) Entered as Reported by Tyler Luther on 02/25/16 1117 Divalproex Sodium (Depakote) 500 MG TABLET. 1,500 MG PO QPM MENTAL HEALTH ( Reported) Entered as Reported by Марина Barrow on 12/19/17 220 Gabapentin 400 MG CAPSULE 1 CAP PO TID ANXIETY/MOOD (Reported) Entered as Reported by Марина Barrow on 12/19/172208 Lurasidone HCl (Latuda) 80 MG TABLET 1 TAB PO QPM MENTAL HEALTH (Reported) Entered as Reported by Марина Barrow on 12/19/172208 Mirtazapine 15 MG TABLET 1 TAB PO QPM MENTAL HEALTH (Reported) Entered as Reported by Марина Barrow on 12/19/172209 Prazosin HCl (Minipress) 2 MG CAPSULE 1 CAP PO QPM NIGHTMARES (Reported) Entered as Reported by Марина Barrow on 12/19/172209 Propranolol HCl 20 MG TABLET 1 TAB PO TID ANXIETY (Reported) Entered as Reported by Марина Barrow on 12/19/172208 Venlafaxine HCl (Effexor XR) 75 MG CAP.ER.24H - Include any medical condition(s) that may - impact the patient's recovery/remission Past History Medical History Neurological: seizure, 3 YRS AGO EENT: NONE Cardiovascular: NONE Respiratory: asthma Gastrointestinal: NONE Hepatic: NONE Renal: NONE Musculoskeletal: NONE Psychiatric: anxiety, depression, substance abuse Endocrine: NONE Blood Disorders: NONE Cancer(s): NONE VETERINARY PRACTITIONER/Reproductive: YEAST POSSIBLY History of MRSA: No History of VRE: No History of CDIFF: No Isolation History: Standard Surgical History Surgical History: non-contributory Psychiatric Family/Social Hx Family History Psychiatric Illness: Patient denied Substance Use: Denied Suicides: Denied Social History Living Situation: unexplored Significant Relationships (family/friends): Mother Education: Unknown Vocation/Occupation: Unknown Legal: On probation she has a pending court date on 12/25/2017 [facility] Behaviors Screening Tobacco Screening Tobacco Use from ED Docu: Refused to answer - If tobacco counseling indicated - the following topics are required. - #1 Recognizing dangerous situations. - #2 Coping Skills. - #3 Basic information about quitting. Status of Tobacco Cessation Counseling: Counseling Refused Cessation Med Status Nicotine Gum Ordered Alcohol Screening - ETOH screen POS if BAL >=80 or Audit-C>= M4/F3 Audit-C Score from Diag Assess: 0 Blood Alcohol Level: Laboratory Tests 12/20 2139 Toxicology Serum Alcohol (<10 MG/DL) < 10.0 Alcohol Use Screening Results: Neg per Audit C &/or BAL - If ETOH counseling indicated - the following topics are required. - #1 Express concern about the patient's - drinking at unhealthy levels, include informing - of national norms for moderate drinking: - men <= 14 drinks/week, max 4 drinks/occasion - women <= 7 drinks/week, max 3 drinks/occasion - #2 Providing feedback, including linking alcohol to - negative physical effects (liver injury, hypertension) - negative emotional effects (relationship problems and - depression) - negative occupational consequences (reduced work - performance) - #3 Advising the patient to abstain from alcohol or - to drink below national norms for moderate drinking - (as listed above). Status of ETOH Use Counseling: N/A B/C NO ETOH Use Metabolic Screening - Screen if on a Neuroleptic Medication - Metabolic screening should include: - Blood Pressure, BMI, Glucose or Hgb A1c, & a - Lipid profile from within the past 365 days. Metabolic Screening Not Applicable, patient not on a neuroleptic. Exam and Plan Mental Status Examination Ambulation Status: Patient was slightly unsteady because of oversedation Appearance: Sedated looking white female Attitude towards examiner: Cooperative to the best of her ability at this time Psychomotor activity: Reduced psychomotor activity Behavior: No abnormal or bizarre behaviors Quality of speech: Reduced speech Affect: Constricted affect Mood: Irritable Suicidal Ideation: Denied thoughts of suicide today Homicidal Ideation: Deny thoughts of violence or homicide today Hallucinations: Denied hallucinations Paranoid/Delusional Material: Denied feeling paranoid, there were no delusions during the interview Difficulties with thought organization: Patient has no thought disorder Insight: Poor insight Judgment: Poor judgment Orientation: Oriented to place and person Cognition: Impaired attention and concentration and information processing Memory Function: Impaired short-term memory because of medications Estimate of intellectual functioning: Average Assets/Strengths Patient Identified Assets/Strengths: The patient has a supportive family Impression/Plan Impression and Plan: 32-year-old white female with extensive history of substance abuse presented to the emergency room Because of suicidal ideation The patient was recently discharged from the emergency room of [facility] - Include all active medical diagnosis that require tx DSM 5 Diagnosis(es): Unspecified bipolar by history Opioid use disorder stimulant use disorder Other specified personality disorder mixed cluster B - Initial Tx Plan for Active Psych & Medical Conditions Treatment Plan: Inpatient psychiatric care with safety checks every 15 minutes Reduce methadone to 100 mg daily starting tomorrow morning Add chlorpromazine 50 mg every 4 hours as needed for anxiety or agitation Reduce divalproex at bedtime to just 1000 mg continue morning dose the same Nursing assessments, vital signs, biopsychosocial assessment, collateral information, aftercare planning Activities therapy Milieu therapy and group therapies - Factors that would help patient function - in a less restrictive setting. Factors: Patient will be discharge after 2 consecutive days without thoughts of suicide
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
[2017-12-21 20:08] VITALS: BP 128/62
[2017-12-22 07:51] VITALS: BP 84/67
--- NOTE | 2017-12-22 08:36 | CP SOUTH PROGRESS NOTE PSYCH ---
Psych (Inpt) Progress Note Progress Note Vital Signs Date Time Temp Pulse B/P B/P O2 FiO2 12/22 0751 98.5 95 84/67 12/21 2140 90 128/62 12/22 2007 99.3 90 128/62 Mental Status Examination The patient was not sedated this morning. She was agitated stating that the staff does not know her illness. She was loud but was able to regroup and calm down. Fixated on the methadone. He reported that her anxiety is high. She was alert and oriented to time, place, and person. She was cooperative to the best of her ability. Started off angry but calmed down. No abnormal or bizarre behaviors Talkative with mild pressure She described her mood as depressed still having thoughts of suicide. She denied thoughts of violence or homicide today. Denied hallucinations, Denied feeling paranoid, there were no delusions during the interview. Patient has no thought disorder. Poor insight, Poor judgment. She showed better attention and concentration and information processing today. Most likely because she was that sedated. There was no impairment in short-term memory today, probably because she is not sedated. Assessment: 32-year-old white female with extensive history of substance abuse presented to the emergency room because of suicidal ideation. The patient was recently discharged from the emergency room of [facility]. Today she started off belligerent and loud and angry with the staff because "they do not understand my illness" she is also angry about the reduction in the methadone. Then she calmed down and we discussed medication changes for the next 24 hours. 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 Treatment Plan: methadone 100 mg daily DC Atarax Add chlorpromazine 50 mg every 4 hours as needed for anxiety or agitation Continue Depakote 500 the morning and 1000 mg at bedtime Increase doxepin to 50 mg at bedtime as needed for sleep Increase gabapentin to 1200 mg 3 times a day Other specified personality disorder mixed cluster B - Initial Tx Plan for Active Psych & Medical Conditions Treatment Plan: Inpatient psychiatric care with safety checks every 15 minutes Reduce methadone to 100 mg daily starting tomorrow morning Add chlorpromazine 50 mg every 4 hours as needed for anxiety or agitation Reduce divalproex at bedtime to just 1000 mg continue morning dose the same Nursing assessments, vital signs, biopsychosocial assessment, collateral information, aftercare planning Activities therapy Milieu therapy and group therapies
[2017-12-22 19:39] VITALS: BP 116/59
[2017-12-23 07:39] VITALS: BP 96/64
--- NOTE | 2017-12-23 12:36 | SOCIAL WORKER PROG NOTE PSYCH ---
Social Work Progress Note Progress Note Nuria met this morning with Leigh Ann Ledezma (community health worker) and this engineering writer. She presented as somewhat medicated barely opening her eyes at times and mostly looking down. She shared what had happened with her leaving the program [facility] which is a transitional housing program on 12/07, after difficulties getting along with staff members there. She was subsequently at [facility] and [facility] ER before coming here. She apparently discharged what she thought was prematurely from [facility] and went to [facility] after seeing her nursing officer. She stated she was still suicidal. She continues to say that she is having thoughts of self-harm. She doesn't feel stable to leave the hospital at this point. She stated she is having alot of negative thoughts and feels worthless. Shes feeling embarrassed and ashamed of this relapse in her recovery as she feels it is a step back for her. Reported stability for over a year. She is connected to [email or web address] and [facility] for treatment and [facility] for Methadone Maintenance Therapy. She stated she has a friend who she can stay with, but doesn't have a way to contact her right now, due to not having her phone number. She was open to a Crisis and Respite referral. I also encouraged her to call 211 again and schedule a CAN Assessment since she missed an appt. She currently gets [employer] baker of about 200.00 a month. She has applied for Social Security benefits. She was somewhat tearful during the later part of our interview, stating she doesn't feel ready for discharge. I explained that she will not be feeling completely better before leaving here and that this is only part of the process and the rest will happen in outpatient. She was a little frustrated with my response. She signed several releases today for her outpatient providers including her nursing officer.
--- NOTE | 2017-12-23 16:12 | CP SOUTH PROGRESS NOTE PSYCH ---
Psych (Inpt) Progress Note Progress Note Include the following elements, when applicable: Involvement in the active treatment of the patient with behavioral observations of the patient and the patient's response to the treatment. Review of the ongoing treatment process in the context of the treatment plan. Indication of how multi-disciplinary staff members are carrying out the treatment plan. Plans for future interventions and recommendations for revision of the treatment plan. Liaison with other physicians/providers. Progress Note: ["I want to get stable" The patient reports that she is feeling depressed and anxious. She reports having been suicidal earlier this morning. She feels that her thoughts are racing. She states "I want to feel good about myself and not be worthless". She also wants to learn how not to react to others opinions of her. She slept well and her appetite is good. Concentration is poor. There are no psychotic symptoms. The patient feels emotionally dysregulated. Mental status examination: Overweight 32-year-old female with multiple face piercings. Long blond hair the lower half of which is diet light green. She looked like she had been crying. She was alert and oriented 3 and her gait was steady. Eye contact was good. Speech was normal in rate, rhythm, volume and tone. She described her mood is depressed and anxious. Her affect was mood congruent. She was not suicidal or homicidal but reported she did not feel safe outside the hospital setting. The patient is overwhelmed by her psychosocial stressors and has feelings of guilt about sabotaging previous treatments. Thought process was normal in tempo and stream. Form was concrete. There were no delusions or obsessions. Attention and concentration were fair. There was no perceptual abnormality. Impulse control is fair. Intelligence level is likely average, fund of knowledge average, use of language appropriate. Recent and remote memory are intact. Patient's insight is fair. Judgment unimpaired.] Assessment: 32-year-old female with long substance abuse history presenting as oversedated and emotionally dysregulation. Unable to commit to safety outside the hospital setting. Was taking alprazolam which was recently discontinued. Using chlorpromazine to manage her anxiety with good effect. Methadone is being reduced by 5 mg daily. The patient is tolerating and accepting this. Note the patient has a fungal infection under her breasts. Reason for ongoing admission: Emotional dysregulation, affective instability and inability to commit to safety outside the hospital setting together with the patient substance abuse and significant psychosocial stressors render her at risk for suicide if discharged prematurely. Current medication regime: Methadone 100 mg p.o. daily Prazosin 4 mg p.o. nightly Gabapentin 1200 mg p.o. 3 times daily Doxepin 50 mg p.o. nightly Depakote 500 mg p.o. daily and 1000 mg p.o. nightly Venlafaxine X are 300 mg p.o. daily Treatment plan: -Reduce methadone to 95 mg p.o. daily tomorrow -Reduce gabapentin to 600 mg p.o. 3 times daily as the patient finds it ineffective and is on multiple medications -Discontinue doxepin -Start chlorpromazine 50 mg p.o. 4 times daily; discussed possible side effects -Depakote level tomorrow -Continue other medications as ordered -Refer to [facility] on discharge -Tentative discharge date November 24.
[2017-12-23 20:01] VITALS: BP 128/68
[2017-12-24 07:33] VITALS: BP 91/62
--- NOTE | 2017-12-24 11:46 | SOCIAL WORKER PROG NOTE PSYCH ---
Social Work Progress Note Progress Note Spoke with worldwide chief creative officer Camryn Franklin about Nuria. She shared that she was referring her to inpatient rehabs. She asked if her urine was dirty. I told her that she tested positive for cocaine. She said she did a referral to [facility] and would be working on others. I let her know that Nuria will discharge from here possibly tomorrow and that we were referring to [facility] Programs and IOP. Met with Nuria this afternoon. I told her that her PO and I spoke and that her PO is looking into rehab for her. Nuria got very distressed about that information and started crying stating that is not what she was planning and that will ruin everything. She then went on about how she couldn't get Xanax in rehab. I asked if she was on Xanax currently? She said no. She stated her prescriber in the community prescribes it to her. She continued to get very worked up about it. She de-escalated and calmed down. I told her that [facility] had a female opening today. She initially seemed disinterested, but started asking questions. I offered to have her questions entertained by the director at [facility], so we called together. Dora answered but stated she was already entertaining another referral for the bed and would need to call back. Encouraged her to discuss her plan with PO and stated it would probably be good for Dr. Deleon her and I to sit down tomorrow together to discuss her plan and how she is doing. She continues to be upset over the fact that she may discharge soon and that there is no long-term/ program in place. Her referral for [facility] was faxed today. Community Health Worker Leigh Ann Ledezma has been following up. She is also following up on her referral to IOP at the [facility].
--- NOTE | 2017-12-24 15:33 | CP SOUTH PROGRESS NOTE PSYCH ---
Psych (Inpt) Progress Note Progress Note Include the following elements, when applicable: Involvement in the active treatment of the patient with behavioral observations of the patient and the patient's response to the treatment. Review of the ongoing treatment process in the context of the treatment plan. Indication of how multi-disciplinary staff members are carrying out the treatment plan. Plans for future interventions and recommendations for revision of the treatment plan. Liaison with other physicians/providers. Progress Note: [Patient was discussed a team meeting. The patient reports "I want to get out and be stable like I was when I came out in 2016 but I do not know where I am going to live". The patient reports that her anxiety is better and she feels calmer. Concentration has improved. Sleep is poor with initial insomnia as "I kept thinking that I was going to sleep and then I did not". Appetite and energy are good. Patient is feeling slightly overwhelmed following a conversation with her title officer. She is working with the health care social worker on housing. She is not suicidal and does not want to . She does not have any psychotic symptoms. Mental status examination: 32-year-old female with several face piercings. She has long hair, at the ends which is clean and freshly washed. She was alert and oriented 3 and her gait was steady. She was pleasant and appropriate albeit somewhat anxious particularly when discussing her housing. Eye contact was good. Speech was normal in rate, rhythm, volume and tone. She described her mood is anxious and her affect was mood congruent. She was not suicidal or homicidal. Thought process was normal in tempo, stream and form. Thought content was preoccupied with discharge planning and she was somewhat overwhelmed by this. Attention and concentration were fair. There was no perceptual abnormality. Impulse control is good. Intelligence level is likely average, fund of knowledge average, use of language appropriate. Recent and remote memory are intact. The patient's insight is fair, judgment unimpaired. Assessment: The patient's anxiety has improved and she is less sedated than previously. She is not suicidal or homicidal and there are no psychotic symptoms. She is feeling anxious and overwhelmed at the prospect of being homeless. She is tolerating the reduction in her methadone. Depakote level 84.6 Reason for ongoing admission: The patient is easily overwhelmed and becomes emotionally dysregulation although she responds to redirection. She is ambivalent about committing to safety outside the hospital setting. She requests admission for further mood stabilization. Current medication regime: Methadone 95 mg p.o. daily Prazosin 4 mg p.o. nightly Gabapentin 1200 mg p.o. 3 times daily Doxepin 50 mg p.o. nightly Depakote 500 mg p.o. daily and 1000 mg p.o. nightly Venlafaxine X are 300 mg p.o. daily Treatment plan: -Reduce methadone to 90 mg p.o. daily tomorrow -Continue medications as ordered. -For possible further reduction in gabapentin tomorrow as the patient has found it ineffective. -The patient is working with social work and title officer on obtaining housing Refer to [facility] on discharge - -Discharge tentatively scheduled for tomorrow December 25
[2017-12-24 20:11] VITALS: BP 117/62
[2017-12-24 23:00] VITALS: BP 104/70
[2017-12-25 07:55] VITALS: BP 112/65
--- NOTE | 2017-12-25 11:18 | SOCIAL WORKER PROG NOTE PSYCH ---
Social Work Progress Note Progress Note Dr. Deleon and I met with Nuria this morning. She immediately stated she wasn't feeling well due to being anxious. She stated she was not ready to leave and couldn't understand or accept the fact that we were looking to discharge her. She said she made a call to 211 and scheduled a CAN Assessment at the [facility] in [place]. She stated this appt. is for 12/31 and she needs to be there between 9-11:30am. She rambled on about how she has no plan. She was explained again that most of what she is looking to do will be outpatient. Reiterated that she already has providers in the community and that IOP would be helpful in continuing to monitor her symptoms. She stated she didn't feel she would stay safe due to not having a safe place to go. She talked about another friend Yecenia who she could stay with, but reported that her friend would cause her to get into further legal trouble. Reiterated that was a matter of choice for her to engage in illegal activity. Nuria went back and forth about not wanting to look at rehabs. Spent alot of time blaming and help rejecting. She got tearful and loud. She was encouraged to lower her voice. We let her know we would be giving her phone numbers to follow up with and that Zeina (community health worker) would help her with that. She got up and left the room. She later apologized for her behavior. She said she got through to the housing in [place] that she was interested in and stated there was no availability at this time. Nuria's Mother called. I check there was no release of information. I told her that I could listen to her concerns but I was not permitted to release information. She said she has been in touch with Nuria since being here. She was concerned stating that it didn't sound like she had a good plan in place and that was not safe for Nuria. She expressed concerns about her chronic mental health and substance use, but didn't say anything specific other than she wouldn't do well out on the street. She wondered if Nuria would sign a release. I told her I would ask. Leigh Ann Ledezma Community health worker worked with Nuria on completing a screening for [place] [facility]. She is on the wait list, but they want to confirm what other rehabs the PO is proposing and what screenings may be set up. They may have bed availability soon. Leigh Ann also contacted [facility] and left a message with Micky Campbell to schedule an intake for IOP. A call will need to be place tomorrow to also confirm appt. with prescriber.
--- NOTE | 2017-12-25 15:35 | CP SOUTH PROGRESS NOTE PSYCH ---
Psych (Inpt) Progress Note Progress Note Include the following elements, when applicable: Involvement in the active treatment of the patient with behavioral observations of the patient and the patient's response to the treatment. Review of the ongoing treatment process in the context of the treatment plan. Indication of how multi-disciplinary staff members are carrying out the treatment plan. Plans for future interventions and recommendations for revision of the treatment plan. Liaison with other physicians/providers. Progress Note: Patient discussed at team meeting "I think you need to do more to make a plan for me" The patient was encountered sitting having breakfast with her peers. She slept well last night. She remains anxious and angry regarding her psychosocial stressors. She reports that she has a friend she could stay with but that if she stays with her friend she may make bad decisions. She has another friend she may be able to stay with but says that he is unable to contact her from here as she does not have a computer. The patient is ambivalent about residential rehabilitation. She reports that she is "suicidal" but has no plan. She states "if I am suicidal you can discharge me". There are no psychotic symptoms. The patient became extremely emotionally dysregulation during the interview, eventually storming out of the office. She proceeded to the nurses station where she continued to be angry and upset. She was redirected away from the nurses station and shortly afterwards return to the dining room where she resumed her breakfast calmly and appropriately with her peers. The patient later apologized for her behavior. Mental status examination: Alert and oriented 3, gait steady. Eye contact poor at the time of initial interview but improved when reencountered later in the day. Speech normal in rate, rhythm and tone. Volume intermittently loud. Mood "suicidal". Affect frustrated and anxious. The patient's does not want to but is at risk for impulsive self-harm due to her frustration. Thought process normal in tempo and stream, concrete and form. No delusions or obsessions. Attention and concentration fair. No perceptual abnormality. Impulse control fair. Recent and remote memory intact. Intelligence level average, fund of knowledge average, use of language appropriate. Insight fair, judgment unimpaired. Medications: Methadone 95 mg p.o. daily Prazosin 4 mg p.o. nightly Gabapentin 600 mg p.o. 3 times daily Doxepin 50 mg p.o. nightly Depakote 500 mg p.o. daily and 1000 mg p.o. nightly Venlafaxine X are 300 mg p.o. daily Chlorpromazine 50 mg p.o. 4 times daily Nystatin 1 application topically twice daily Labs: 12/24 Depakote level normal at 84.6 12/25 HbA1c 5, cholesterol 155, triglycerides 180, LDL 81, HDL 38 Assessment: The patient is sleeping and eating well. She has a good range of affect and is socially inappropriate with peers and staff. She is not pervasively depressed and is not hypomanic or manic. There are no psychotic symptoms. However the patient dysregulation easily in the face of psychosocial stressors. Impulse control is poor. She has a risk of self-harm if discharged in the absence of safe discharge plan. The patient is working with social work and is participating by making appropriate calls. Treatment plan: - Continue medication as ordered - Increase chlorpromazine to 75 mg p.o. 4 times daily for affective instability -The patient will continue to work with social work on discharge planning -In the interim the patient will participate in individual and group psychotherapy working on distress tolerance and emotion regulation.
[2017-12-25 19:43] VITALS: BP 134/53
[2017-12-26 08:02] VITALS: BP 136/74
--- NOTE | 2017-12-26 14:38 | SOCIAL WORKER PROG NOTE PSYCH ---
Social Work Progress Note Progress Note Left a message with Nuria's tank officer asking for her to inform me of other rehab referrals she may be doing. Nuria got a visit from 2 people from [facility]. Camila Schwarz LCSW and Socrates Matthews peer support. Nuria has been given their services due to being a high utilizer of services. Nuria sat with her eyes closed for most of the discussion, but was talking. She continually stated she was upset over her Methadone taper and that she wasn't feeling well. She spent alot of time during the discussion blaming and help rejecting over discussion about her discharge plan. She is not agreeing to certain referrals to be done such as [facility] or [facility]. She only seems open to [facility] or [facility]. She was in agreement to sign a release for [facility] to speak with her PO as well. She got emotionally worked up and left the meeting at one point. I gave Camila and Socrates an update on her presentation and what we have been working on for her discharge. Nuria returned to the meeting a few minutes later. They attempted to call her PO, but didn't get her and left a voicemail. I needed to excuse myself from the meeting, but before they left Camila stated that she called [facility] and that they may have a bed. She recommended we fax a referral. I had Nuria sign a release and I faxed a referral. Made a call to follow up and spoke with Mayra who stated they received the referral and would need to review it and call back. Nuria was also handed a list of rehabs to follow up on. She asked for the [facility]/ [facility] application which was given to her to fill out. The following appts. were scheduled by Leigh Ann Ledezma (community health worker) today: Sohail Whitt (therapist) scheduled for 01/10/18 @10am for IOP eval at [facility]. Melba Gould NURSING TECHN 01/13 9:40am for meds. [address] [place] [address]. [phone] .
--- NOTE | 2017-12-26 15:31 | CP SOUTH PROGRESS NOTE PSYCH ---
Psych (Inpt) Progress Note Progress Note Include the following elements, when applicable: Involvement in the active treatment of the patient with behavioral observations of the patient and the patient's response to the treatment. Review of the ongoing treatment process in the context of the treatment plan. Indication of how multi-disciplinary staff members are carrying out the treatment plan. Plans for future interventions and recommendations for revision of the treatment plan. Liaison with other physicians/providers. Progress Note: Patient discussed at team meeting. Workers from [facility] also came to visit patient today. Pt reports that she is willing to enter specific rehabilitation programs. She has turned down programs she was referred to by her freedom of information officer. She is also submitting an application for [facility]. The patient is sleeping and eating well. She is concerned about her methadone being reduced. She states that she is not suicidal or homicidal today. There are no psychotic symptoms. Mental status examination: The patient is alert and oriented 3 and her gait is steady. Her eye contact is extremely poor. Speech normal in rate, rhythm, volume and tone. She describes her mood as "better". Her affect is depressed. She is not suicidal or homicidal. Thought processes normal in tempo, and stream , concrete in form. There are no delusions or obsessions. Attention and concentration are fair. There is no perceptual abnormality. Impulse control today is better. Recent and remote memory are intact. Intelligence level average. Methadone 80 mg p.o. daily Prazosin 4 mg p.o. nightly Gabapentin 600 mg p.o. 3 times daily Doxepin 50 mg p.o. nightly Depakote 500 mg p.o. daily and 1000 mg p.o. nightly Venlafaxine X are 300 mg p.o. daily Chlorpromazine 75 mg p.o. 4 times daily Nystatin 1 application topically twice daily Labs: 12/24 Depakote level normal at 84.6 12/25 HbA1c 5, cholesterol 155, triglycerides 180, LDL 81, HDL 38 Assessment: The patient is not suicidal or homicidal. She remains pleasant and appropriate with peers and staff. She is less reactive today. She remains focused on a discharge plan, predominantly on housing. Social work is assisting her with referral to [facility] as well as to referral for residential rehabilitation programs. Methadone taper ongoing. No medication changes today. Treatment plan: Continue medications as ordered The patient will hopefully be discharged tomorrow to [facility].
[2017-12-26 20:11] VITALS: BP 128/76
[2017-12-27 07:40] VITALS: BP 124/74
--- NOTE | 2017-12-27 09:42 | SOCIAL WORKER PROG NOTE PSYCH ---
Social Work Progress Note Progress Note The services requested require additional review. You will be contacted regarding the status of this request if further information is needed. An authorization decision will be made within the required timeframes and details of that decision may be found under the member's authorization history. Member Name Member ID Member Subscriber Name Subscriber ID RAFFY FREEMAN [id number] RAFFY LIMIO [id number] Pended Authorization # Client Authorization # Type of Request [id number] [facility] Date of Admission/ Start of Services Requested From Submission Date 12/20/2017 12/26/2017 12/27/2017 Level of Service Type of Service Level of Care Type of Care INPATIENT/HLOC Mental Health Inpatient Inpatient Hospital - Inpatient Hospital Reason Code P76 Provider Name & Address Provider ID Provider Alternate ID NPI # for Authorization ADONIS DUARTE [id number] [facility] [id number]
--- NOTE | 2017-12-27 15:45 | SOCIAL WORKER PROG NOTE PSYCH ---
Social Work Progress Note Progress Note Nuria, Dr. Deleon, Franca Ledezma (community health worker) and I met together this afternoon. Nuria continues to look sedated, talking with her eyes closed. She stated she didn't get much sleep last night, but didn't idenitfy what kept her up. She had just finished a screening with [facility]. She was told that they really felt she would be more appropriate for [facility] first and then come to them. Nuria's application to [facility] and [facility] was faxed in today. Nuria was told that if she would need to be screened and accepted somewhere in order to remain on the [facility] waiting list. Leigh Ann is continuing to help her try and connect to one of these programs. She was told that the commercial loan coordinator for [facility] wouldn't be in until Saturday. Nuria was asked about her report of wanting to harm herself to nursing? She denied this and appeared unsure of what nursing was asking her. She said she felt "worthless" but denied thoughts of self harm. Let her know there was a definete difference and she needed to be clear on what she was telling people. We talked about [facility] and if we should look at that as an option. She reports that she was at the program a year ago and she got into a conflict with staff there and reported she was going to kill herself and intentionally went out and overdosed on heroin. She was then discharged from the program. Someone had found her and called 911. Told her we are working on trying to find options for her. Asked if this was the only place she did this? She said yes. Reports this is the last self harm attempt, but there have been others in the past. Spoke with Oscar from [facility] who wanted to do a screening with Nuria. Nuria refused to do the screening because she doesn't want to be at the program who had her son removed/ DCF involved. I told her she is limiting her options. She stated she would rather be on the street than go there. I informed [facility] staff and they reported this to her PO, who then called me. I informed her of what happened and what we have been working on. She said the only other referral she will do for her is [facility] and other than that she can go to a longterm. I told her that come mid week or earlier we may discharge her with or without placement. Leigh Ann spoke with Sixto at [facility]. He informed her that the wait is about 3 weeks at this point. He needs to review her referral to give an answer on acceptance.
--- NOTE | 2017-12-27 15:56 | CP SOUTH PROGRESS NOTE PSYCH ---
Psych (Inpt) Progress Note Progress Note Include the following elements, when applicable: Involvement in the active treatment of the patient with behavioral observations of the patient and the patient's response to the treatment. Review of the ongoing treatment process in the context of the treatment plan. Indication of how multi-disciplinary staff members are carrying out the treatment plan. Plans for future interventions and recommendations for revision of the treatment plan. Liaison with other physicians/providers. Progress Note: The patient's case was discussed in detail at team meeting which was attended by the unit psychiatrist, social workers, nurses and activity therapist as well as crisis workers. Staff report that the patient again told them she was having thoughts of self- harm this morning. Again the patient denies this. She presents a somewhat sedated although again she denies this. The patient reports poor sleep last night. Staff checks reports she slept well. She does not participate in groups. The patient is very preoccupied with her housing issues. Social work has been working with "[employer] on obtaining placement for the patient in a rehabilitation facility. The patient has been participating and making calls and doing phone screens. She is somewhat irritated with the process and complains that it makes her feel tired when she is asked a lot of questions. Mental status examination: The patient appears sedated. Her gait is steady. Eye contact intermittent. Speech is somewhat slow, normal in volume, monotonous. She describes her mood as "okay", her affect is flat. She is not suicidal or homicidal. Thought process is normal in tempo and stream, concrete in form. There were no delusions or obsessions. Attention and concentration are fair. There is no perceptual abnormality. Impulse control is fair. Intelligence level is likely low average, fund of knowledge average, use of language appropriate. Recent and remote memory are intact. Insight is limited and judgment unimpaired. Assessment: 32-year-old opiate dependent female who presented to the emergency room with depression and suicidal ideation shortly after discharge from [facility] and released from the emergency room at [facility]. She is on methadone and her dose has been reduced by 5 mg daily as per hospital policy for methadone patients with dirty urines. The patient has been somewhat resistant to attempts to discharge her and is very preoccupied and her housing issue. She has threatened self-harm in a somewhat manipulative fashion at times. He [employer] is working with her as is her surveillance sensor officer. Current plan is to have her discharged to either rehabilitation program [facility] with a date for rehab program following the holiday weekend. Methadone will be reduced by 5 mg every day. Treatment plan: -As above -Continue meds as ordered\\ -Reduce methadone by 5 mg daily -Probable discharge December 31
[2017-12-27 19:37] VITALS: BP 140/91
[2017-12-28 07:54] VITALS: BP 119/76
--- NOTE | 2017-12-28 16:41 | CP SOUTH PROGRESS NOTE PSYCH ---
Psych (Inpt) Progress Note Progress Note Include the following elements, when applicable: Involvement in the active treatment of the patient with behavioral observations of the patient and the patient's response to the treatment. Review of the ongoing treatment process in the context of the treatment plan. Indication of how multi-disciplinary staff members are carrying out the treatment plan. Plans for future interventions and recommendations for revision of the treatment plan. Liaison with other physicians/providers. Progress Note: [facility] AMDylan clement when talking with this science writer this am. DId not offer major complaints. Later on the day had more questions about methadone dosing. Still feels " down" but denies any hopeslessnes or helplessness. NO SI/HI. Future oriented. Regualr patterns sleep and appetite. TOelrating medication regimen well. However looks sedated at times. ( DAQUAN?) Not much visible in the unit. MSE Young OW female. Fairly groomed. Fair eye contact. Restricted affect. No SI/ HI . NO AVH. organized and linear somnolent 0x3 I/J Fair. A/P 32 y/o WF Opiate Use Dx. SIMD Vs Bipolar Tapering down methadone. Less dysphoria and subsided suicidality. Will continue same medication regimen includign daily taper of methadone.
[2017-12-28 19:32] VITALS: BP 116/68
[2017-12-29 07:57] VITALS: BP 111/74
--- NOTE | 2017-12-29 19:24 | CP SOUTH PROGRESS NOTE PSYCH ---
Psych (Inpt) Progress Note Progress Note Include the following elements, when applicable: Involvement in the active treatment of the patient with behavioral observations of the patient and the patient's response to the treatment. Review of the ongoing treatment process in the context of the treatment plan. Indication of how multi-disciplinary staff members are carrying out the treatment plan. Plans for future interventions and recommendations for revision of the treatment plan. Liaison with other physicians/providers. Progress Note: Case discussed with ray nurse in AM. Nuria today seems more anxious and med seeking. Per nursing report she still seems highly sedated. Questioning the decreased in methadone dose and complaining of mild withdrawal symptoms. Also asking about her Latuda. Expalined that she is being switched to thorazine per review of records. Slept 5h last evening.Fair appetite. Denies any SI/ self injurious urges. No perceptual disturbances. MSE Young female. disheveled. Anxious. somatic complaints. No SI/Hi. NO AVH. Organized linear for most part. AAOx3 I/J Limited. A/P 32 y/o Female. Opiate Use Dx taperign down on methadone for failing contract. Bipolar Disorder. Pt is anxious and attmepting to negotiate taper of methadone. Will continue same tx plan. with decreasing methadone to 70 mg daily tomorrow. Monitoring sedation with thorazine.
[2017-12-29 19:46] VITALS: BP 131/70
[2017-12-30 07:58] VITALS: BP 123/86
[2017-12-30 11:47] VITALS: BP 120/75
--- NOTE | 2017-12-30 13:39 | CP SOUTH PROGRESS NOTE PSYCH ---
Psych (Inpt) Progress Note Progress Note Include the following elements, when applicable: Involvement in the active treatment of the patient with behavioral observations of the patient and the patient's response to the treatment. Review of the ongoing treatment process in the context of the treatment plan. Indication of how multi-disciplinary staff members are carrying out the treatment plan. Plans for future interventions and recommendations for revision of the treatment plan. Liaison with other physicians/providers. Progress Note: Case discussed with ray nurse in AM. Nuria today contnmues complaining of withdawal like symptoms, having more urges today. Feels chills and muscle aches. Anxious. Slept last nigth. Fair appetite. Participating in unit activities. MSE Young female. disheveled. Anxious. somatic complaints. No SI/Hi. NO AVH. Organized linear for most part. AAOx3 I/J Fair. A/P 32 y/o Female. Opiate Use Dx taperign down on methadone for failing contract. Bipolar Disorder. Noticng more wirthdrawal symptoms today. including cravings. WIll offer low dose clonidine 0.1 mg BID. Other medications will continue same. MOnitor temp. Encouraged to focus on discharge process.
[2017-12-30 19:38] VITALS: BP 118/78
[2017-12-31 07:54] VITALS: BP 142/77
--- NOTE | 2017-12-31 09:00 | CP SOUTH PROGRESS NOTE PSYCH ---
Psych (Inpt) Progress Note Progress Note duplicate Date Time Temp Pulse Resp B/P B/P Pulse O2 O2 Flow FiO2 12/31 0812 98.1 73 18 142/77 12/31 0754 98.1 73 142/77 12/30 2248 97.7 71 118/78 12/30 1938 97.7 71 11812/30 1147 99.4 88 120/75 The patient's case was discussed with the treatment team in the morning meeting which was attended by psychiatrist, social workers, nurses and activity therapist as well as crisis social workers. Staff report that the patient again told them she was having thoughts of self- harm this morning. Again the patient denies this. She presents a somewhat sedated although again she denies this. The patient reports poor sleep last night. Staff checks reports she slept well. She does not participate in groups. The patient is very preoccupied with her housing issues. Social work has been working with "[employer] on obtaining placement for the patient in a rehabilitation facility. The patient has been participating and making calls and doing phone screens. She is somewhat irritated with the process and complains that it makes her feel tired when she is asked a lot of questions. Mental status examination: The patient appears sedated. Her gait is steady. Eye contact intermittent. Speech is somewhat slow, normal in volume, monotonous. She describes her mood as "okay", her affect is flat. She is not suicidal or homicidal. Thought process is normal in tempo and stream, concrete in form. There were no delusions or obsessions. Attention and concentration are fair. There is no perceptual abnormality. Impulse control is fair. Intelligence level is likely low average, fund of knowledge average, use of language appropriate. Recent and remote memory are intact. Insight is limited and judgment unimpaired. Assessment: 32-year-old opiate dependent female who presented to the emergency room with depression and suicidal ideation shortly after discharge from [facility] and released from the emergency room at [facility]. She is on methadone and her dose has been reduced by 5 mg daily as per hospital policy for methadone patients with dirty urines. The patient has been somewhat resistant to attempts to discharge her and is very preoccupied and her housing issue. She has threatened self-harm in a somewhat manipulative fashion at times. He [employer] is working with her as is her officer lieutenant. Current plan is to have her discharged to either rehabilitation program [facility] with a date for rehab program following the holiday weekend. Methadone will be reduced by 5 mg every day. Treatment plan: -As above -Continue meds as ordered\\ -Reduce methadone by 5 mg daily -Probable discharge December 31
--- NOTE | 2017-12-31 12:34 | SOCIAL WORKER PROG NOTE PSYCH ---
Social Work Progress Note Progress Note Determination Status: PENDED The services requested require additional review. You will be contacted regarding the status of this request if further information is needed. An authorization decision will be made within the required timeframes and details of that decision may be found under the member's authorization history. Member Name Member ID Member Subscriber Name Subscriber ID RAFFY FREEMAN [id number] RAFFY CASTELANAGGIO [id number] Pended Authorization # Client Authorization # Type of Request [id number] CONCURRENT Date of Admission/ Start of Services Requested From Submission Date 12/20/2017 12/31/2017 12/31/2017 Level of Service Type of Service Level of Care Type of Care INPATIENT/[facility] - [facility]PATIENT [facility]OSPITAL Reason Code P76 Provider Name & Address Provider ID Provider Alternate ID NPI # for Authorization PRISCILLA SPENCER [address] [place] [id number]
--- NOTE | 2017-12-31 14:16 | SOCIAL WORKER PROG NOTE PSYCH ---
Social Work Progress Note Progress Note Nuria was upset over having called the former housing program she was in ( [facility]) and told that her belongings would be thrown out by Saturday. She said she has about 10 bags there. She said she was able to think about it and she might be able to get a storage unit to store her things for the time being. I asked how she would pay for that? She said she gets money from the state each month and she has money available right now. She then went on to say that she thinks she left her DSS card at the hotel in [place] and needed to contact the hotel to see if it was still there or not. She seemed to be looking for some phone numbers to follow up with. I told her to make a list and Zeina (community health worker) can help her look up some phone numbers. I asked why this was all coming up today after she had been here for quite a while now? She got very upset with me and started then blaming me for her distressed mood and asked why I was asking her such questions? I told her that she needed to stop blaming me for how she is feeling. Told her that she will be discharged from the hospital this week and suggested she reschedule her CAN assessment that was missed today. She said she didn't need it since she was going to a program. I suggested she still make one, as we don't have a program for her to go to yet. Suggested she meet with Zeina to discuss what has been going on with her referrals. Zeina made calls to [facility] and [facility] today. Nuria was put on the [facility] wait list with anticipated admission for 01/20. She needs to stay in touch with [facility] [phone] ext. [phone]. Screening was completed today with the [facility]. They may have a bed for Nuria tomorrow if we can transfer her methadone to [place].
--- NOTE | 2017-12-31 15:18 | CP SOUTH PROGRESS NOTE PSYCH ---
Psych (Inpt) Progress Note Progress Note Vital Signs Date Time Temp Pulse Resp B/P B/P Pulse O2 O2 Flow FiO2 12/31 0812 98.1 73 18 142/77 12/31 0754 98.1 73 142/77 12/30 2248 97.7 71 118/78 12/30 1938 97.7 71 118/78 Mental Status Examination The patient seemed anxious and fixated on her [facility] card, she called a motel in [place] and they said they got rid of it. She was not sedated this morning. She was calm and slightly sedated. She reported that she is struggling mnore with anxiety than depression. She was alert and oriented to time, place, and person. No abnormal or bizarre behaviors. She was not pressured today. She denied thoughts of suicide. She denied thoughts of violence or homicide today. Nuria denied hallucinations, denied feeling paranoid, there were no delusions during the interview. Patient has no thought disorder. There was no impairment in short-term memory today. Assessment: Nuria is a 32-year-old white female who presented to the emergency room because of suicidal ideation. The patient was recently discharged from the emergency room of [facility]. The patient denied thoughts of suicide over the long Day weekend. She seems ready for discharge but not sure where she's going to be living. 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
[2017-12-31 19:24] VITALS: BP 131/75
[2018-01-01 08:00] VITALS: BP 123/76
[2018-01-01 08:09] VITALS: BP 123/76
[2018-01-01] MEDS ORDERED: CLONIDINE HCL0.1 MG PO (12:18)
[2018-01-01] MEDS ORDERED: PRAZOSIN HCL2 M1 PO (12:18)
[2018-01-01] MEDS ORDERED: VENLAFAXINE HC150 MG PO (12:18)
[2018-01-01] MEDS ORDERED: METHADONE HCL10 M1 PO (12:18)
[2018-01-01] MEDS ORDERED: DIVALPROEX SOD500 M2 PO (12:18)
[2018-01-01] MEDS ORDERED: GABAPENTIN300 M2 PO (12:18)
[2018-01-01] MEDS ORDERED: CHLORPROMAZINE25 M2 PO (12:20)
[2018-01-01] MEDS ORDERED: ZIPRASIDONE HCL40 M1 PO (12:20)
--- NOTE | 2018-01-01 12:21 | Patient Discharge Instructions ---
Psych Discharge Inst General Discharge Information Reason for Admission: thoughts of suicide Psy Discharge Primary Diag+ Unspecified Bipolar By Hx Psy Discharge Secondary Diag+ Opioid Use Disorder, tony Summary Tests/Major Procedures Lab Cholesterol 155 MG/DL 12/25/17 0615 Cholesterol/HDL Ratio 4 % 12/25/17 0615 HDL Cholesterol 38 mg/dL L 12/25/17 0615 Hemoglobin A1c 5.0 % 12/25/17 0615 LDL Cholesterol, Calc 81 mg/dL 12/25/17 0615 Triglycerides 180 mg/dL H 12/25/17 0615 Studies Pending at DC: None Patient Instructions Contact Information Your Psychiatrist on [facility] was Kamran KIM,Jero * If you are experiencing an emergency related to this hospitalization, please call [phone] to contact the treating psychiatrist or the psychiatrist-on- call. * To Request a copy of your medical records, please contact the Medical Records Department at [phone]. * To request results of studies pending at the time of discharge, please call [phone]. * Continue your Medications until directed to stop by your Healthcare provider. General Medication Information Please continue to take your new medications and your continued home medications , unless otherwise indicated on your discharge medication list, or unless directed by your MD or EMISSIONS TESTING AND REPAIR TECHNICIAN to stop them. Special Instructions Diet Regular Activity Normal - Tobacco Use Treatment Offered Post DC Medications Offered: Refused Tob Medication Tx Post DC Tobacco Treatment Plan: Refused Tobacco Tx Pgm - EtOH/Drug Use D/O Treatment Offered Post DC Medications Offered: Script Given-See Med List Post DC EtOH/SubAbuse TX Plan: Other SubAbuse/Dual Pgm Metabolic Screening Patient on a neuroleptic BMI: 42.600 Blood Pressure: 123/76 Laboratory Results From [facility] (If applicable): Lab Cholesterol 155 MG/DL 12/25/17 0615 Cholesterol/HDL Ratio 4 % 12/25/17 0615 HDL Cholesterol 38 mg/dL L 12/25/17 0615 Hemoglobin A1c 5.0 % 12/25/17 0615 LDL Cholesterol, Calc 81 mg/dL 12/25/17 0615 Triglycerides 180 mg/dL H 12/25/17 0615 Advance Directives Does the Patient have Medical Advance Directives No/Refused further info Does Pt have Psychiatric Advance Directives? No/Refused further info Does Patient have a Designated Surrogate Decision Maker: No Information About Psychiatric Advance Directives Provided? Refused Discharge Plan Post Hospital Treatment Plan: [facility]
--- NOTE | 2018-01-01 13:09 | DISCHARGE SUMMARY REPORT-PSYCH ---
Visit Information Visit Dates/Diagnosis' Admission Date: 12/20/17 Discharge Date: 01/01/18 Reason for Admission: thoughts of suicide Psy Discharge Primary Diag: Unspecified Bipolar By Hx Psy Discharge Secondary Diag: Opioid Use Disorder, tony Hospital Course Significant Lab Findings: Lab Methadone Screen > 735 NG/ML H 12/20/17 181 Urine Cocaine Screen 613 NG/ML H 12/20/17 181 Urine Opiates Screen 249 NG/ML 12/20/17 181 Valproic Acid 84.6 ug/mL 12/24/17 0559 Course Complications: Patient did not have any complications while she was on the inpatient psychiatric unit. Consultations: General Information and HPI MD Statement: I have seen and personally examined NURIA FREEMAN and documented this H&P. The patient is a 32 year old F who presented with a patient stated chief complaint of vague suicidal ideation. Source of Information: patient Exam Limitations: no limitations History of Present Illness: 32 year-old admitted for suicidal ideation. Seen at [facility] day prior to admission, and discharged. Now with vague plans of overdosing. On methadone maintenance with a UDS that is also positive for cocaine. Patient was calm and cooperative during interview, most concerned about her UDS which she says "can't possibly be positive for cocaine; I haven't used that since Saturday". The initial UDS was positive for cocaine. We are repeating it per her request. Also requesting Xanax at this time. She was recently evaluated at [facility] for similar complaints, but wasn't admitted; feels like with this degree of destabilization that she should be hospitalized. Allergies/Medications Allergies: Coded Allergies: No Known Allergies (02/25/16) Home Med list Alprazolam 1 MG TABLET 1 TAB PO TID ANXIETY (Reported) Divalproex Sodium (Depakote) 500 MG TABLET. 1 TAB PO QAM MENTAL HEALTH ( Reported) Divalproex Sodium (Depakote) 500 MG TABLET.DR 1,500 MG PO QPM MENTAL HEALTH ( Reported) Gabapentin 400 MG CAPSULE 1 CAP PO TID ANXIETY/MOOD (Reported) Lurasidone HCl (Latuda) 80 MG TABLET 1 TAB PO QPM MENTAL HEALTH (Reported) Mirtazapine 15 MG TABLET 1 TAB PO QPM MENTAL HEALTH (Reported) Prazosin HCl (Minipress) 2 MG CAPSULE 1 CAP PO QPM [place]IGHTMARES (Reported) Propranolol HCl 20 MG TABLET 1 TAB PO TID ANXIETY (Reported) Venlafaxine HCl (Effexor XR) 75 MG CAP.ER.24H 5 CAP PO DAILY MENTAL HEALTH ( Reported) Compliance With Home Meds: GOOD Past History Travel History Traveled to [place] past 21 day No Medical History Neurological: seizure, 3 YRS AGO EENT: NONE Cardiovascular: NONE Respiratory: asthma Gastrointestinal: NONE Hepatic: NONE Renal: NONE Musculoskeletal: NONE Psychiatric: anxiety, depression, substance abuse Endocrine: NONE Blood Disorders: NONE Cancer(s): NONE MANUFACTURING ENGINEER PAINT/Reproductive: YEAST POSSIBLY History of MRSA: No History of VRE: No History of CDIFF: No Isolation History: Standard Surgical History Surgical History: non-contributory Past Family/Social History Psychosocial History Where do you live? Other Who Do You Live With? self Services at Home: Home Health Aide (none) Primary Language: Azeri Smoking Status: Current Everyday Smoker ETOH Use: occasional use Illicit Drug Use: cocaine Living Will? unknown Power of Sales Development Consultant/HCP? unknown Review of Systems Review of Systems Constitutional: Reports: no symptoms. EENTM: Reports: see HPI. Denies: no symptoms. Cardiovascular: Reports: no symptoms. Respiratory: Reports: no symptoms. GI: Reports: no symptoms. Genitourinary: Reports: no symptoms. Musculoskeletal: Reports: no symptoms. Skin: Reports: no symptoms. Neurological/Psychological: Reports: no symptoms. Hematologic/Endocrine: Reports: no symptoms. Immunologic/Allergic: Reports: no symptoms. Post Menopausal: No Exam & Diagnostic Data Last 24 Hrs of Vital Signs/I&O Vital Signs Date Time Temp Pulse Resp B/P B/P Pulse O2 O2 Flow FiO2 Mean Ox Delivery Rate 12/20 2122 96.9 57 18 104/57 12/20 2002 96.9 57 104/57 12/20 1601 97.2 67 95/60 12/20 1555 97.2 67 18 95/60 12/20 1409 65 109/73 12/20 1357 97.7 65 19 109/73 98 Room Air 12/20 1031 97 Room Air Room Air 12/20 1031 97.4 83 18 128/81 97 Room Air Room Air 12/20 0818 97.3 56 18 133/74 100 Room Air Room Air 12/20 0615 97.9 56 20 117/22 12/20 0557 Room Air 12/20 0557 97.9 56 20 117/22 98 Room Air 12/20 0144 Room Air 12/20 0143 98.8 64 20 123/72 100 Room Air 12/19 2309 99.3 80 20 127/96 99 Room Air Physical Exam General Appearance Alert, Oriented X3, Cooperative (poor eye contact) Skin No Rashes, No Breakdown, No Significant Lesion Skin Temp/Moisture Exam: Cool/Dry Sepsis Skin Exam (color): Normal for Ethnicity HEENT Atraumatic, PERRLA, EOMI Neck Supple, No JVD, No thryomegaly Lymphatic Axillary nl, Cervical nl Cardiovascular Regular Rate, Normal S1, Normal S2, No Murmurs, Gallops, Rubs Lungs Clear to Auscultation, Normal Air Movement Abdomen Normal Bowel Sounds Neurological Normal Gait, Normal Speech Assessment/Plan Assessment: 32 year-old admitted for suicidal ideation. Seen at [facility] day prior to admission, and discharged. Now with vague plans of overdosing. On methadone maintenance with a UDS that is also positive for cocaine. Patient was calm and cooperative during interview, most concerned about her UDS which she says "can't possibly be positive for cocaine; I haven't used that since Saturday". The initial UDS was positive for cocaine. We are repeating it per her request. Also requesting Xanax but I don't believe that is desired by psychiatry- she is getting thorazine instead. No new medications ordered for her at this time. As Ranked By This Provider Problem List: 1. Opiate dependence Core Measures/Misc (01/13) Acute Coronary Syndrome ACS Diagnosis: No Congestive Heart Failure Congestive Heart Failure Diagnosis No Cerebrovascular Accident CVA/TIA Diagnosis: No VTE (View Protocol) VTE Risk Factors No risk factors No Mechanical VTE Prophylaxis d/t LowRisk-No Interven Req'd No VTE Pharm Prophylaxis d/t LowRisk-No Interven Req'd Sepsis (View protocol) Sepsis Present: No If YES complete Sepsis Event Note If YES complete Sepsis Event Note DICTATED BY: Lorenzo Garvey MD DATE/TIME DICTATED:12/20/172131 IT PROGRAMMER ANALYST:CARL DATE/TIME TRANSCRIBED:12/20/172131 REPORT NUMBER:[id number] CONFIDENTIAL, DO NOT COPY WITHOUT APPROPRIATE AUTHORIZATION. <Electronically signed by Lorenzo Garvey MD> 12/20/17 5289 Allergies: Coded Allergies: No Known Allergies (02/25/16) Hospital Course/TX Response: 12/21/2017: Dr. Andrew's Impression and Plan: 32-year-old white female with extensive history of substance abuse presented to the emergency room. Because of suicidal ideation. 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 Initial Treatment Plan: Inpatient psychiatric care with safety checks every 15 minutes Reduce methadone to 100 mg daily starting tomorrow morning Add chlorpromazine 50 mg every 4 hours as needed for anxiety or agitation Reduce Divalproex at bedtime to just 1000 mg continue morning dose the same Nursing assessments, vital signs, biopsychosocial assessment, collateral information, aftercare planning Activities therapy Milieu therapy and group therapies 12/22/2017: methadone 100 mg daily DC Atarax Add chlorpromazine 50 mg every 4 hours as needed for anxiety or agitation Continue Depakote 500 the morning and 1000 mg at bedtime Increase doxepin to 50 mg at bedtime as needed for sleep Increase gabapentin to 1200 mg 3 times a day. 12/23/2017: Dr. Deleon (Covering) Treatment plan: -Reduce methadone to 95 mg p.o. daily tomorrow -Reduce gabapentin to 600 mg p.o. 3 times daily as the patient finds it ineffective and is on multiple medications -Discontinue doxepin -Start chlorpromazine 50 mg p.o. 4 times daily; discussed possible side effects -Depakote level tomorrow -Continue other medications as ordered -[facility]er to [facility] on discharge -Tentative discharge date November 24. 12/24/2017: Dr. Deleon (Covering) -Reduce methadone to 90 mg p.o. daily tomorrow -Continue medications as ordered. -For possible further reduction in gabapentin tomorrow as the patient has found it ineffective. -The patient is working with social work and returning officer on obtaining housing Refer to [facility] on discharge - -Discharge tentatively scheduled for tomorrow December 25 12/25/2017: Dr. Deleon (Covering): - Continue medication as ordered - Increase chlorpromazine to 75 mg p.o. 4 times daily for affective instability -The patient will continue to work with social work on discharge planning -In the interim the patient will participate in individual and group psychotherapy working on distress tolerance and emotion regulation. 12/26/2017: Dr. Deleon (Covering) No change in patient's medications. 12/27/2017: Dr. Deleon (Covering) -Reduce methadone by 5 mg daily Otherwise, continue same medications 12/28/2017: Dr. Diaz (covering) A/P: 32 y/o WF Opiate Use Dx. SIMD Vs Bipolar Tapering down methadone. Less dysphoria and subsided suicidality. Will continue same medication regimen includign daily taper of methadone. 12/29/2017: Dr. Diaz (covering) 32 y/o Female. Opiate Use Dx taperign down on methadone for failing contract. Bipolar Disorder. Pt is anxious and attmepting to negotiate taper of methadone. Will continue same tx plan. with decreasing methadone to 70 mg daily tomorrow. Monitoring sedation with thorazine. 12/30/2017: Dr. Diaz (covering) 32 y/o Female. Opiate Use Dx taperign down on methadone for failing contract. Bipolar Disorder. Noticng more wirthdrawal symptoms today. including cravings. WIll offer low dose clonidine 0.1 mg BID. Other medications will continue same. MOnitor temp. Encouraged to focus on discharge process. 12/31/2017: Dr. Andrew Treatment Plan: Reduce Depakote to 500 BID Start Geodon 40 mg with supper Continue all other medications unchanged 01/01/2018: Dr. Andrew Mental Status Examination Nuria seemed anxious about discharge and perseverating about every single detail including transportation [facility] and [facility] her [facility]one clinic, and what is going to happen with rehab programs that she interviewed with, etc. etc. She was able to re-group and was calmer after some reassurances that Beatriz is taking care of transportation and that we have to get an x-ray done [facility] She was alert and oriented to time, place, and person. No abnormal or bizarre behaviors. She was not pressured today. She denied thoughts of suicide. She denied thoughts of violence or homicide today. Nuria denied hallucinations, denied feeling paranoid, there were no delusions during the interview. Patient has no thought disorder. There was no impairment in short-term memory today. Assessment: Nuria is a 32-year-old single white female who presented to the emergency room because of suicidal ideation. The patient was recently discharged from the emergency room of [facility]. The patient denied thoughts of suicide over the long Day weekend as well as yesterday and today. She seems ready for discharge with some understandable anxiety. 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 Treatment Plan: [facility] with the plan of continuing to follow up with rehab programs until it is a bit open up Discharge HBIPS - Tobacco Use Treatment Offered Post DC Medications Offered: Refused Tob Medication Tx Post DC Tobacco Treatment Plan: Refused Tobacco Tx Pgm - EtOH/Drug Use D/O Treatment Offered Post DC Medications Offered: Script Given-See Med List Post DC EtOH/SubAbuse TX Plan: Other SubAbuse/Dual Pgm Metabolic Screening - Screen if on a Neuroleptic Medication - Metabolic screening should include: - Blood Pressure, BMI, Glucose or Hgb A1c, & a - Lipid profile from within the past 365 days. Metabolic Screening Patient on a neuroleptic(s) . Enter below results for Hemoglobin A1C, and lipid panel if obtained during the last 365 days. BMI: 42.600 Blood Pressure: 123/76 Laboratory Results From [facility] (If applicable): Lab Cholesterol 155 MG/DL 12/25/17 0615 Cholesterol/HDL Ratio 4 % 12/25/17 0615 HDL Cholesterol 38 mg/dL L 12/25/17 0615 Hemoglobin A1c 5.0 % 12/25/17 0615 LDL Cholesterol, Calc 81 mg/dL 12/25/17 0615 Triglycerides 180 mg/dL H 12/25/17 0615 Discharge Instructions General Discharge Information Multiple Neuroleptics: Geodon was just started in the last 2 days of patient's stay and will have to be cross titrated with Thorazine (which was used for agitation/sedation as opposed to anti-manic agent) Discharge Diet Regular Discharge Activity Normal DC [facility]: [facility] [place] Referrals Ordered Referrals Provider Referral 01/10/18 For Groups: [[facility]] [facility] at [facility] 01/10/[address] [place] [address] Provider Referral 01/13/18 For Groups: [[facility]] [facility] appt[facility] with med provider 01/13/18 9:40am [address] [facility], [place] [phone] Provider Referral 01/02/18 For Groups: [[facility] [place] [facility] [place] therapy 9am 01/02/18 [address] [facility], [place] [phone] Provider Referral 01/01/18 For Groups: [facility] [place] admission 01/01/18 afternoon [address] [place], [place] [phone] Prescriptions Stop taking the following medications: Venlafaxine HCl (Effexor XR) 75 MG CAP.ER.24H ORAL DAILY Divalproex Sodium (Depakote) 500 MG TABLET.DR ORAL Every Morning Alprazolam (Alprazolam) 1 MG TABLET ORAL THREE TIMES DAILY Divalproex Sodium (Depakote) 500 MG TABLET.DR ORAL Every night Lurasidone HCl (Latuda) 80 MG TABLET ORAL Every night Propranolol HCl (Propranolol HCl) 20 MG TABLET ORAL THREE TIMES DAILY Gabapentin (Gabapentin) 400 MG CAPSULE ORAL THREE TIMES DAILY Mirtazapine (Mirtazapine) 15 MG TABLET ORAL Every night Prazosin HCl (Minipress) 2 MG CAPSULE ORAL Every night Start taking the following new medications: Clonidine HCl (Clonidine HCl) 0.1 MG TABLET 0.1 Milligram ORAL TWICE DAILY Qty = 30 No Refills Comments: Last Taken: 01/01/18 Time: 0800 Prazosin HCl (Prazosin HCl) 2 MG CAPSULE 4 Milligram ORAL Every night Qty = 15 No Refills Comments: Last Taken: 12/31/17 Time: 2200 Methadone Hydrochloride (Methadone HCl) 10 MG TABLET 70 Milligram ORAL DAILY Qty = 1 No Refills Comments: Last Taken: 01/01/18 Time: 0800 Divalproex Sodium (Divalproex Sodium) 500 MG TABLET.DR 500 Milligram ORAL TWICE DAILY Qty = 30 No Refills Comments: Last Taken: 01/01/18 Time: 0800 Gabapentin (Gabapentin) 300 MG CAPSULE 600 Milligram ORAL THREE TIMES DAILY Qty = 90 No Refills Comments: Last Taken: 01/01/18 Time: 0800 Chlorpromazine HCl (Chlorpromazine HCl) 25 MG TABLET 75 Milligram ORAL THREE TIMES DAILY Qty = 120 No Refills Comments: Last Taken: 01/01/18 Time: 0640 Ziprasidone HCl (Ziprasidone HCl) 40 MG CAPSULE 40 Milligram ORAL 5 PM Qty = 15 No Refills Comments: Last Taken: 12/31/17 Time: 1800 Venlafaxine HCl (Venlafaxine HCl ER) 150 MG CAP.ER.24H 2 Capsule ORAL DAILY Qty = 30 No Refills Comments: Last Taken: 01/01/18 Time: 0800 Studies Pending at Discharge None Copies To: [facility]
--- NOTE | 2018-01-01 13:09 | CP SOUTH PROGRESS NOTE PSYCH ---
Psych (Inpt) Progress Note Progress Note Vital Signs Date Time Temp Pulse B/P 01/01 0809 97.6 77 123/76 01/01 0800 97.6 77 123/76 12/31 2151 75 131/75 12/31 2150 75 131/75 Mental Status Examination Nuria seemed anxious about discharge and perseverating about every single detail including transportation from [facility] to [facility] and transportation from [facility] to her methadone clinic, and what is going to happen with rehab programs that she interviewed with, etc. etc. She was able to re-group and was calmer after some reassurances that Beatriz is taking care of transportation and that we have to get an x-ray done [facility] She was alert and oriented to time, place, and person. No abnormal or bizarre behaviors. She was not pressured today. She denied thoughts of suicide. She denied thoughts of violence or homicide today. Nuria denied hallucinations, denied feeling paranoid, there were no delusions during the interview. Patient has no thought disorder. There was no impairment in short-term memory today. Assessment: Nuria is a 32-year-old single white female who presented to the emergency room because of suicidal ideation. The patient was recently discharged from the emergency room of [facility]. The patient denied thoughts of suicide over the long Day weekend as well as yesterday and today. She seems ready for discharge with some understandable anxiety. 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
--- NOTE | 2018-01-01 14:56 | RADIOLOGY REPORT ---
EXAMINATION: XR CHEST CLINICAL INFORMATION: Rule out active infection COMPARISON: None TECHNIQUE: 2 views of the chest were obtained. FINDINGS: Cardiac silhouette is normal in size. Lungs are well aerated lungs are well aerated. No lobar consolidation. No pleural effusion or pneumothorax. No acute osseous abnormality. IMPRESSION: No acute cardiopulmonary pathology.
--- NOTE | 2018-01-01 17:31 | SOCIAL WORKER PROG NOTE PSYCH ---
Social Work Progress Note Progress Note Nuria was accepted to the [place] [facility] this morning. [place] in [place] will see Nuria at 9am tomorrow to provide a week's worth of Methadone for her. Spoke with Nuria about her plan. She was thankful for the bed [facility], but continued to be focused on getting into [facility] and said she needed me to fax over her clinical packet again to the admission coordinator, because she didn't have it. She was panicked that she may have lost a bed. I assured her I would fax the referral and give Dora a call. I followed through on this and Dora stated she would put Nuria on the waiting list. She may have a bed next week. I explained that she would be at the [facility] in the meantime. Zeina (community health worker scheduled a [place] ride to superintendent measurement Nuria at 1:30pm today. The ride did not come until 5pm today. Zeina assured the staff at [facility] that she was still coming. I left her safety and security officer [phone] a message that Nuria was discharged and where she is going.
--- NOTE | 2018-01-01 17:35 | SOCIAL WORKER PROG NOTE PSYCH ---
Social Work Progress Note Faxed Referral(s) 1 Referred To: [facility] Documents sent: Health Summary, W10 Faxed to: [facility] Fax #: [phone] Faxed by: Jolene Novoa Date faxed: 01/01/18 Time Faxed: [phone] Faxed Referral(s) 2 Referred To: [facility] Documents sent: Health Summary, W10 Faxed to: [facility] Fax #: [phone] Faxed by: Jolene Novoa Date faxed: 01/01/18 Time Faxed: [phone]
== END 2018-01-01 14:47 | DRG 753 ==
LOC: ERH 20:56 → ERHI 12-20 14:42 → CP SOUTH 12-20 14:42 → ENTRNSPT 12-20 15:31 → EDTRNSPT 12-20 15:40 → EDTRNSPTSTS 12-20 15:40 → CP SOUTH 12-20 15:52 → CMPTRNSPT 12-20 16:09 → CP SOUTH 12-31 10:45
PROVIDERS: Physician Assistant; Psychiatry & Neurology Psychiatry
DX: F31.9 Bipolar disorder, unspecified (principal); F11.90 Opioid use, unspecified, uncomplicated
CPT/HCPCS: 36415; 71046; 80307; 81025; 93005; 93010; G0480; J0515; J1630